=== PATIENT | female | born 1955 | race Caucasian/White ===

== ENCOUNTER 2018-03-16 12:23 | Inpatient (IN) | payer BC ==
[2018-03-16 13:14] LABS: Absolute Lymphocytes (CBC) 1.5 K/uL (0.7-4.9); Absolute Monocytes 0.5 K/uL (0.1-1.3); Absolute Neutrophil 7.3 K/uL (1.8-8.0); Basophils % 0.3 % (0-1.3); Eosinophils % 0.1 % (0-4.4); Hematocrit 39.7 % (36.0-45.0); Lymphocytes % 16.5 % (15.3-44.8); MCH 29.1 pg (27.0-35.0); MPV 7.4 fL (7.6-11.3); Monocytes % 5.7 % (3.3-12.3); RBC Red Blood Cell Count 4.56 M/uL (3.86-4.86)
[2018-03-16] MEDS ORDERED: IBUPROFEN 400 MG TAB ONE (13:21)
[2018-03-16] MEDS ORDERED: IBUPROFEN 200 MG TAB PO ONE (13:21)
[2018-03-16 13:33] LABS: ALT/SGPT 45 U/L (12-78); AST/SGOT 20 U/L (15-37); Albumin 4.2 g/dL (3.4-5.0); Alkaline Phosphatase 69 U/L (45-117); BUN Blood Urea Nitrogen 19 mg/dL (7-18); Bicarbonate 24 mmol/L (21-32); Bilirubin Direct 0.2 mg/dL (0-0.2); Bilirubin Total 0.5 mg/dL (0.2-1.0); Creatine Phosphokinase 129 U/L (26-192); Glucose Level 116 mg/dL (74-106); Lipase 88 U/L (73-393); Potassium 4.2 mmol/L (3.5-5.1); Protein, Total 7.5 g/dL (6.4-8.2); Sodium Level 137 mmol/L (136-145); Troponin (Emerg Dept Use Only) < 0.02 ng/mL (0.0-0.045)
--- NOTE | 2018-03-16 13:42 | RAD REPORT ---
EXAM DESCRIPTION: RAD - Chest Pa And Lat (2 Views) - 03/16/2018 1:37 pm CLINICAL HISTORY: Cough and congestion, right-sided chest pain and fever COMPARISON: September 2011 TECHNIQUE: PA and lateral views of the chest were obtained. FINDINGS: The lungs are underinflated. There is a large area of consolidation in the right upper lob e with no cavitation component. Lung arguelles are otherwise clear. Patient has a mild chronic interstit ial pattern seen. Trachea is midline. Heart size is normal and central vasculature is within normal limits. No pleural effusion or pneumothorax seen. No acute bony finding noted. No aortic abnormal ity. IMPRESSION: Moderately large right upper lobe pneumonia. No cavitation or other complicating factor.
[2018-03-16] MEDS ORDERED: NA CHLORIDE 0.9% 2,000 ML ONE (14:17)
[2018-03-16] MEDS ORDERED: CEFTRIAXONE/SWI 1gm 1 GM/10 ML SYR ONE (14:17)
[2018-03-16] MEDS ORDERED: AZITHROMYCIN 500 MG/250 ML BAG ONE (14:17)
[2018-03-16] MEDS ORDERED: IPRATROPIUM BROM 0.5MG/2.5ML ONE (14:27)
[2018-03-16] MEDS ORDERED: ALBUTEROL 2.5 MG/3 ML NEB SOL ONE (14:27)
--- NOTE | 2018-03-16 15:49 | ER ---
Nurse's Notes [facility] Name: Denisha Thao Age: 62 yrs Sex: Female : 1955 Arrival Date: 03/16/2018 Time: 12:26 Bed 16 Private MD: Caleb Holbrook V Diagnosis: Pneumonia, unspecified organism Presentation: 03/16 12:33 Presenting complaint: Patient states: around 1030 last night I got the chills and began la1 having pain in the right side of my chest and shoulder. Pt reports cough for 2 weeks. Transition of care: patient was not received from another setting of care. Onset of symptoms was March 16, 2018. Risk Assessment: Do you want to hurt yourself or someone else? Patient reports no desire to harm self or others. Initial Sepsis Screen: Does the patient meet any 2 criteria? No. Patient's initial sepsis screen is negative. Does the patient have a suspected source of infection? No. Patient's initial sepsis screen is negative. Care prior to arrival: None. 12:33 Method Of Arrival: Wheelchair la1 12:33 Acuity: EWELINA 3 la1 Historical: - Allergies: 12:34 No Known Allergies; la1 - PMHx: 12:34 Hypertension; High Cholesterol; neuropathy; la1 - Immunization history:: Adult Immunizations up to date. - Social history:: Smoking status: Patient uses tobacco products, smokes one pack cigarettes per day. - Ebola Screening: : No symptoms or risks identified at this time. Screenin:22 Abuse screen: Denies threats or abuse. Denies injuries from another. Nutritional aj screening: No deficits noted. Tuberculosis screening: No symptoms or risk factors identified. Fall Risk None identified. Assessment: 13:17 General: Appears in no apparent distress. comfortable, Behavior is calm, cooperative, aj appropriate for age. Pain: Complains of pain in chest, anterior aspect of right shoulder and posterior aspect of right shoulder. Cardiovascular: Reports chest pain, Capillary refill < 3 seconds in bilateral Patient's skin is warm and dry. Respiratory: Reports cough that is pain with respiration Airway is patent Respiratory effort is even, unlabored, Respiratory pattern is regular, symmetrical. Derm: Skin is intact, is healthy with good turgor, Skin is pink, warm \T\ dry. normal. 14:36 Reassessment: Patient appears in no apparent distress at this time. No changes from aj previously documented assessment. Patient and/or family updated on plan of care and expected duration. Pain level reassessed. Patient is alert, oriented x 3, equal unlabored respirations, skin warm/dry/pink. Patient states feeling better. 16:26 Reassessment: Patient appears in no apparent distress at this time. No changes from aj previously documented assessment. Patient and/or family updated on plan of care and expected duration. Pain level reassessed. Patient is alert, oriented x 3, equal unlabored respirations, skin warm/dry/pink. Patient denies pain at this time. Patient states feeling better. Patient states symptoms have improved. Vital Signs: 12:34 BP 100 / 59; Pulse 94; Resp 20; Temp 99.1; Pulse Ox 93% on R/A; Weight 83.91 kg; la1 14:36 BP 111 / 75; Pulse 90; Resp 21; Temp 98.7; Pulse Ox 100% on R/A; aj ED Course: 12:26 Patient arrived in ED. rg4 12:26 Caleb Holbrook MD is Private Physician. rg4 12:34 Triage completed. la1 12:34 Arm band placed on right wrist. la1 12:35 Pattie Ross FNP-C is [facility]. kb 12:35 Fransisco Coronel MD is Attending Physician. kb 12:36 Rivka Byrd, VALENTINE is Primary Nurse. aj 13:15 Inserted saline lock: 22 gauge in right antecubital area, using aseptic technique. la1 Blood collected. 13:22 Patient has correct armband on for positive identification. hub bander on. Pulse aj ox on. NIBP on. 13:22 EKG done, by ED staff, reviewed by Fransisco Coronel MD. mh5 13:22 Patient maintains SpO2 saturation greater than 95% on room air. aj 13:36 X-ray completed. Portable x-ray completed in exam room. Patient tolerated procedure la2 well. 13:37 Chest Pa And Lat (2 Views) XRAY In Process Unspecified. EDMS 15:48 Caleb Holbrook MD is Hospitalizing Provider. kb 16:26 No provider procedures requiring assistance completed. Patient admitted, IV remains in aj place. intact. Administered Medications: 13:15 Drug: Ibuprofen 600 mg Route: PO; aj 14:47 Follow up: Response: Pain is decreased aj 14:18 Drug: NS 0.9% (30 ml/kg) 30 ml/kg Route: IV; Rate: bolus; Site: right antecubital; aj 16:24 Follow up: IV Status: Completed infusion aj 16:24 Follow up: Response: No adverse reaction; IV Intake: 2500ml aj 14:19 Drug: Rocephin - (cefTRIAXone) 1 grams Route: IVPB; Infused Over: 30 mins; Site: right aj antecubital; 16:25 Follow up: Response: No adverse reaction; IV Status: Completed infusion; IV Intake: 10mlaj 14:19 Drug: Zithromax 500 mg Route: IVPB; Infused Over: 1 hrs; Site: right antecubital; aj 16:25 Follow up: Response: No adverse reaction; IV Status: Completed infusion; IV Intake: aj 250ml 14:22 Drug: DuoNeb (3:1) (2.5 mg - 0.5 mg) 3 ml Route: Nebulizer; aj 14:46 Follow up: Response: No adverse reaction; Wheezing diminished aj Intake: 16:24 IV: 2500ml; Total: 2500ml. aj 16:25 IV: 250ml; Total: 2750ml. aj 16:25 IV: 10ml; Total: 2760ml. aj Outcome: 15:49 Decision to Hospitalize by Provider. kb 16:26 Admitted to Med/surg accompanied by tech, via wheelchair, room 225, Report called to radha Solares 16:26 Condition: good 16:26 Instructed on the need for admit. 16:27 Patient left the ED. aj Signatures: Dispatcher [employer] Pattie March, WALESKA PERRY-Rivka Herron, RN RN Lito Wu RN RN Erin Martinez Maria Johanny Smith
--- NOTE | 2018-03-16 15:49 | EDPHYS ---
Physician Documentation [facility] Name: eDnisha Thao Age: 62 yrs Sex: Female : 1955 Arrival Date: 03/16/2018 Time: 12:26 Bed 16 Private MD: Caleb Holbrook V ED Physician Fransisco Coronel HPI: 03/16 14:36 This 62 yrs old Female presents to ER via Wheelchair with complaints of Chest kb Pain, Shoulder Pain, Leg Pain, Breathing Difficulty. 14:36 The patient or guardian reports cough, that is intermittent, described as moderate, kb with no sputum, flu symptoms, low-grade fever. Onset: The symptoms/episode began/occurred 3 day(s) ago. Severity of symptoms: At their worst the symptoms were moderate, in the emergency department the symptoms are unchanged. Modifying factors: The symptoms are alleviated by nothing, the symptoms are aggravated by nothing. Associated signs and symptoms: Pertinent positives: chest pain, fever. The patient has not experienced similar symptoms in the past. The patient has not recently seen a physician. Pt reports cough for 3 days, right-sided chest pain and chills started last night. . Historical: - Allergies: 12:34 No Known Allergies; la1 - PMHx: 12:34 Hypertension; High Cholesterol; neuropathy; la1 - Immunization history:: Adult Immunizations up to date. - Social history:: Smoking status: Patient uses tobacco products, smokes one pack cigarettes per day. - Ebola Screening: : No symptoms or risks identified at this time. ROS: 14:30 ENT: Negative for injury, pain, and discharge, Neck: Negative for injury, pain, and kb swelling, Abdomen/GI: Negative for abdominal pain, nausea, vomiting, diarrhea, and constipation, Back: Negative for injury and pain, : Negative for injury, bleeding, discharge, and swelling, MS/Extremity: Negative for injury and deformity, Skin: Negative for injury, rash, and discoloration, Neuro: Negative for headache, weakness, numbness, tingling, and seizure. 14:30 Constitutional: Positive for chills, fever, Negative for body aches, fatigue, malaise, poor PO intake, weight loss. 14:30 Cardiovascular: Positive for chest pain, of the anterior aspect of right upper chest, Negative for edema, orthopnea, palpitations, paroxysmal nocturnal dyspnea. 14:30 Respiratory: Positive for cough, Negative for dyspnea on exertion, hemoptysis, orthopnea, pleurisy, shortness of breath, sputum production, wheezing. Exam: 14:30 Constitutional: This is a well developed, well nourished patient who is awake, alert, kb and in no acute distress. Head/Face: Normocephalic, atraumatic. Chest/axilla: Normal chest wall appearance and motion. Nontender with no deformity. No lesions are appreciated. Cardiovascular: Regular rate and rhythm with a normal S1 and S2. No gallops, murmurs, or rubs. Normal PMI, no JVD. No pulse deficits. Abdomen/GI: Soft, non-tender, with normal bowel sounds. No distension or tympany. No guarding or rebound. No evidence of tenderness throughout. Skin: Warm, dry with normal turgor. Normal color with no rashes, no lesions, and no evidence of cellulitis. MS/ Extremity: Pulses equal, no cyanosis. Neurovascular intact. Full, normal range of motion. Neuro: Awake and alert, GCS 15, oriented to person, place, time, and situation. Cranial nerves II-XII grossly intact. Motor strength 5/5 in all extremities. Sensory grossly intact. Cerebellar exam normal. Normal gait. 14:30 Respiratory: the patient does not display signs of respiratory distress, Respirations: normal, Breath sounds: rhonchi, that are mild, are heard in the right upper lobe. Vital Signs: 12:34 BP 100 / 59; Pulse 94; Resp 20; Temp 99.1; Pulse Ox 93% on R/A; Weight 83.91 kg; la1 14:36 BP 111 / 75; Pulse 90; Resp 21; Temp 98.7; Pulse Ox 100% on R/A; aj MDM: 12:35 Patient medically screened. kb 14:29 Data reviewed: vital signs, nurses notes. Data interpreted: Pulse oximetry: on room air kb is 93 %. Interpretation: acceptable. Counseling: I had a detailed discussion with the patient and/or guardian regarding: the historical points, exam findings, and any diagnostic results supporting the discharge/admit diagnosis, lab results, radiology results, the need for further work-up and treatment in the hospital. Physician consultation: Caleb Holbrook MD was called at 14:29, message left. 15:05 Physician consultation: Caleb Holbrook MD was called at 15:05. kb 15:31 Physician consultation: Caleb Holbrook MD was called at 15:31. kb 15:48 Physician consultation: Caleb Holbrook MD was contacted at 15:48, regarding admission, to the telemetry unit. patient's condition, and will see patient in inpatient room. 03/16 12:42 Order name: Lipase; Complete Time: 13:54 kb 03/16 12:42 Order name: Basic Metabolic Panel; Complete Time: 13:54 kb 03/16 12:42 Order name: Blood Culture Adult (2) kb 03/16 12:42 Order name: CBC with Diff; Complete Time: 13:15 kb 03/16 12:42 Order name: Ckmb; Complete Time: 13:54 kb 03/16 12:42 Order name: CPK; Complete Time: 13:54 kb 03/16 12:42 Order name: Lactate; Complete Time: 13:54 kb 03/16 12:42 Order name: LFT's; Complete Time: 13:54 kb 03/16 12:42 Order name: Procalcitonin; Complete Time: 13:54 kb 03/16 12:42 Order name: Troponin (emerg Dept Use Only); Complete Time: 13:54 kb 03/16 12:42 Order name: Urine Microscopic Only kb 03/16 12:42 Order name: Chest Pa And Lat (2 Views) XRAY; Complete Time: 13:54 kb 03/16 16:11 Order name: Urine Dipstick--Ancillary (enter results) ag 03/16 12:42 Order name: Cardiac monitoring; Complete Time: 13:16 kb 03/16 12:42 Order name: EKG - Nurse/Tech; Complete Time: 13:16 kb 03/16 12:42 Order name: IV Saline Lock - Large Bore; Complete Time: 13:15 kb 03/16 12:42 Order name: Labs collected and sent; Complete Time: 13:15 kb 03/16 12:42 Order name: O2 Per Protocol; Complete Time: 13:16 kb 03/16 12:42 Order name: O2 Sat Monitoring; Complete Time: 13:16 kb 03/16 12:42 Order name: Urine Dipstick-Ancillary (obtain specimen); Complete Time: 16:26 kb 03/16 14:27 Order name: Vital Signs; Complete Time: 14:41 kb Administered Medications: 13:15 Drug: Ibuprofen 600 mg Route: PO; aj 14:47 Follow up: Response: Pain is decreased aj 14:18 Drug: NS 0.9% (30 ml/kg) 30 ml/kg Route: IV; Rate: bolus; Site: right antecubital; aj 16:24 Follow up: IV Status: Completed infusion aj 16:24 Follow up: Response: No adverse reaction; IV Intake: 2500ml aj 14:19 Drug: Rocephin - (cefTRIAXone) 1 grams Route: IVPB; Infused Over: 30 mins; Site: right aj antecubital; 16:25 Follow up: Response: No adverse reaction; IV Status: Completed infusion; IV Intake: 10mlaj 14:19 Drug: Zithromax 500 mg Route: IVPB; Infused Over: 1 hrs; Site: right antecubital; aj 16:25 Follow up: Response: No adverse reaction; IV Status: Completed infusion; IV Intake: aj 250ml 14:22 Drug: DuoNeb (3:1) (2.5 mg - 0.5 mg) 3 ml Route: Nebulizer; aj 14:46 Follow up: Response: No adverse reaction; Wheezing diminished aj Disposition: 03/16/18 15:49 Hospitalization ordered by Caleb Holbrook for Inpatient Admission. Preliminary diagnosis is Pneumonia, unspecified organism. - Bed requested for Telemetry/MedSurg (Inpatient). - Status is Inpatient Admission. aj - Condition is Stable. - Problem is new. - Symptoms are unchanged. UTI on Admission? No Addendum: 03/18/2018 07:14 Co-signature as Attending Physician, Fransisco Coronel MD I agree with the assessment and c maher plan of care. Signatures: Dispatcher [employer] [facility] Pattie Ross, HAND BOOKED FOLDER AND STITCHER-C HAND BOOKED FOLDER AND STITCHER-Humera Rose, RN Rivka Quick RN Fransisco Nova MD MD cha Attema, Lee RN RN la1 Corrections: (The following items were deleted from the chart) 03/16 13:00 12:43 Chest Pa And Lat (2 Views)+[id number].[email or web address] ordered. EDOK EDOK 14:36 14:30 Respiratory: the patient does not display signs of respiratory distress, kb Respirations: normal, Breath sounds: rhonchi, that are mild, are heard in the right upper lobe, wheezing: expiratory that is mild, is heard diffusely, kb 16:06 15:49 Hospitalization Ordered by Caleb Holbrook MD for Inpatient Admission. Preliminary dw diagnosis is Pneumonia, unspecified organism. Bed requested for Telemetry/MedSurg (Inpatient). Status is Inpatient Admission. Condition is Stable. Problem is new. Symptoms are unchanged. UTI on Admission? No. kb 16:27 16:06 03/16/2018 15:49 Hospitalization Ordered by Caleb Holbrook MD for Inpatient aj Admission. Preliminary diagnosis is Pneumonia, unspecified organism. Bed requested for Telemetry/MedSurg (Inpatient). Status is Inpatient Admission. Condition is Stable. Problem is new. Symptoms are unchanged. UTI on Admission? No. dw
[2018-03-16] MEDS ORDERED: IPRATROPIUM BROM 0.5MG/2.5ML NEB PRN (16:41)
[2018-03-16] MEDS ORDERED: ALBUTEROL 2.5 MG/3 ML NEB SOL NEB PRN (16:41)
[2018-03-16 17:06] LABS: Urine Bacteria 20-50 /HPF (<20); Urine Culture Reflex Order REFLEXED; Urine RBC <5 /HPF (NONE SEEN)
[2018-03-16 17:40] VITALS: BMI 39.3
[2018-03-16] MEDS ORDERED: PIPER/TAZO/NS 3.375gm 3.375 GM/100 ML BAG IVPB SCH (18:00)
[2018-03-16] MEDS ORDERED: INFLUENZA VACCINE (for 3y+) 0.5 ML DOSE IMVAC ONE (18:00)
[2018-03-16] MEDS: NACHLORIDE 0.45% 1,000 ML IV SCH (18:16)
[2018-03-16] MEDS: ACETAMINOPHEN 500 MG TAB PO PRN ×2 (18:26→23:45)
[2018-03-16] MEDS: PIPER/TAZO/NS 3.375gm 3.375 GM/100 ML BAG IVPB SCH (23:33)
--- NOTE | 2018-03-16 23:52 | P.HP ---
Certification for Inpatient Patient admitted to: Inpatient With expected LOS: >2 Midnights Practitioner: I am a practitioner with admitting privileges, knowledge of patient current condition, hospital course, and medical plan of care. Services: Services provided to patient in accordance with Admission requirements found in Title 42 Section 412.3 of the Code of Federal Regulations Patient History Date of Service: 03/17/18 Reason for admission: DYSPNEA History of Present Illness: MS. OH IS A SMOKER WHO SUDDENLY GOT SICK WITH DYSPNEA, FEVER AND FATIGUE. SHE CAME TO ER AND IS FOUND TO HAVE RIGHT UPPER LOBE PNEUMONIA. Allergies No Known Allergies Allergy (Verified 03/16/18 16:33) Home Medications: Aspirin [Aspir-Low] 162 mg PO DAILY 03/16/18 Atorvastatin Calcium [Lipitor] 40 mg PO DAILY 03/16/18 Bisoprolol Fumarate [Zebeta*] 5 mg PO DAILY 03/16/18 Cyclobenzaprine [Flexeril*] 10 mg PO TID PRN 03/16/18 Duloxetine HCl 60 mg PO DAILY 03/16/18 Gabapentin 300 mg PO TID 03/16/18 Loratadine 10 mg PO DAILY 03/16/18 Losartan/Hydrochlorothiazide [Losartan-Hctz 100-12.5 mg Tab] 1 each PO DAILY Magnesium Oxide [Magnesium] 500 mg PO BEDTIME 03/16/18 Metformin HCl 500 mg PO BID 03/16/18 Multivitamin [Daily Multivitamin] 1 tab PO DAILY 03/16/18 Oxybutynin Chloride 5 mg PO BID 03/16/18 - Past Medical/Surgical History Has patient received pneumonia vaccine in the past: No Diabetic: No -: Hypertension -: Hyperlipidemia -: Neuropathy -: 3x c sections -: hysterectomy - Family History Mother -: Diabetes, Cancer Notes: colon cancer, lung cancer sisters -: Diabetes - Social History Smoking Status: Current some day smoker Alcohol use: No CD- Drugs: No Caffeine use: Yes Place of Residence: Home Review of Systems 10-point ROS is otherwise unremarkable General: Weakness, Malaise Respiratory: Shortness of Breath Physical Examination - Vital Signs Temperature: 101.3 F Blood Pressure: 107/53 Pulse: 94 Respirations: 20 Pulse Ox (%): 91 - Physical Exam General: Alert, Moderate distress HEENT: Atraumatic, PERRLA, Mucous membr. moist/pink, EOMI, Sclerae nonicteric Neck: Supple, 2+ carotid pulse no bruit, No LAD, Without JVD or thyroid abnormality Respiratory: Diminished Cardiovascular: Regular rate/rhythm, Normal S1 S2 Gastrointestinal: Normal bowel sounds, No tenderness Musculoskeletal: No tenderness Integumentary: No rashes Neurological: Normal gait, Normal speech, Normal strength at 5/5 x4 extr, Normal tone, Normal affect Lymphatics: No axilla or inguinal lymphadenopathy - Studies Laboratory Data (last 24 hrs) 03/16/18 13:00: WBC 9.4, Hgb 13.3, Hct 39.7, Plt Count 230 03/16/18 13:00: Sodium 137, Potassium 4.2, BUN 19 H, Creatinine 0.80, Glucose 116 H, Total Bilirubin 0.5, AST 20, ALT 45, Alkaline Phosphatase 69, Lipase 88 Assessment and Plan - Problems (Diagnosis) (1) Bacterial pneumonia Current Visit: Yes Status: Acute Plan: CHANGE TO IV ZOSYN SHE IS HIGHER RISK THAN REGULAR PNEUMONIA SHE IS SMOKER CULTURES ARE DONE SHE HAS NO SPUTUM. WILL FU DAILY NEBS Q6H PRN. MEDS RENEWED. (2) Diabetes Current Visit: Yes Status: Chronic Plan: CHECK A1C. Qualifiers: Diabetes mellitus type: type 2 (3) HTN (hypertension) Current Visit: Yes Status: Acute Qualifiers: Hypertension type: essential hypertension Qualified Code(s): I10 - Essential (primary) hypertension (4) COPD (chronic obstructive pulmonary disease) Current Visit: Yes Status: Chronic Plan: NEBS FU DAILY NO NEED FOR STEROID AT TIME. - Advance Directives Does patient have a Living Will: No Does patient have a Durable POA for Healthcare: No
[2018-03-16] MEDS ORDERED: CYCLOBENZAPRINE 10 MG TAB PO PRN (23:53)
[2018-03-17] MEDS: ACETAMINOPHEN 500 MG TAB PO PRN ×2 (05:52→17:48)
[2018-03-17] MEDS: PIPER/TAZO/NS 3.375gm 3.375 GM/100 ML BAG IVPB SCH ×3 (05:52→21:02)
[2018-03-17] MEDS: NACHLORIDE 0.45% 1,000 ML IV SCH ×3 (05:52→21:02)
[2018-03-17 06:00] LABS: Absolute Lymphocytes (CBC) 1.7 K/uL (0.7-4.9); Absolute Monocytes 0.8 K/uL (0.1-1.3); Absolute Neutrophil 10.8 K/uL (1.8-8.0); Basophils % 0.2 % (0-1.3); Eosinophils % 0.2 % (0-4.4); Hematocrit 32.4 % (36.0-45.0); Lymphocytes % 12.8 % (15.3-44.8); MCH 29.3 pg (27.0-35.0); MCV 87.2 fL (80-100); MPV 7.3 fL (7.6-11.3); Monocytes % 6.3 % (3.3-12.3); RBC Red Blood Cell Count 3.72 M/uL (3.86-4.86)
[2018-03-17] MEDS ORDERED: CEFTRIAXONE/SWI 1gm 1 GM/10 ML SYR IV SCH (06:00)
[2018-03-17 06:08] LABS: BUN Blood Urea Nitrogen 10 mg/dL (7-18); Bicarbonate 23 mmol/L (21-32); Glucose Level 147 mg/dL (74-106); Potassium 3.9 mmol/L (3.5-5.1); Sodium Level 141 mmol/L (136-145)
[2018-03-17] MEDS: DULOXETINE 30 MG CAP PO SCH (08:54)
[2018-03-17] MEDS: LOSARTAN POTASSIUM 50 MG TABLET PO SCH (08:55)
[2018-03-17] MEDS: LORATADINE 10 MG TAB PO SCH (08:56)
[2018-03-17] MEDS: METFORMIN HCL 500 MG TAB PO SCH ×2 (08:56→21:00)
[2018-03-17] MEDS: GABAPENTIN 300 MG CAP PO SCH ×3 (08:57→21:00)
[2018-03-17] MEDS: ASPIRIN EC 81 MG TAB PO SCH (08:58)
[2018-03-17] MEDS ORDERED: ATORVASTATIN 40 MG TAB PO SCH ×2 (09:00→21:00)
[2018-03-17] MEDS ORDERED: AZITHROMYCIN IV 250 MG in NA CHLORIDE 0.9% 250 ML IVPB SCH (09:00)
[2018-03-17] MEDS ORDERED: hydroCHLOROthiazide 12.5 MG CAP PO SCH (09:00)
[2018-03-17] MEDS: OXYBUTYNIN CHLORIDE 5 MG TAB PO SCH ×2 (09:00→21:01)
[2018-03-17] MEDS: MULTIVITAMIN TAB PO SCH (09:00)
[2018-03-17] MEDS: BISOPROLOL 5 MG TABLET PO SCH (10:48)
--- NOTE | 2018-03-17 10:49 | P.PN ---
Subjective Date of Service: 03/17/18 Chief Complaint: LOT BETTER TODAY. Subjective: Improving SHE IS NOT MUCH SHORT OF BREATH FEELS LOT BETTER. Review of Systems 10-point ROS is otherwise unremarkable General: Weakness Physical Examination - Vital Signs Temperature: 98.2 F Blood Pressure: 129/64 Pulse: 85 Respirations: 18 Pulse Ox (%): 93 - Physical Exam General: Alert, In no apparent distress HEENT: Atraumatic, PERRLA, EOMI Neck: Supple, JVD not distended Respiratory: Clear to auscultation bilaterally, Normal air movement Cardiovascular: Regular rate/rhythm, Normal S1 S2 Gastrointestinal: Normal bowel sounds, No tenderness Musculoskeletal: No tenderness Integumentary: No rashes Neurological: Normal speech, Normal tone, Normal affect Lymphatics: No axilla or inguinal lymphadenopathy - Studies Laboratory Data (last 24 hrs) 03/16/18 13:00: WBC 9.4, Hgb 13.3, Hct 39.7, Plt Count 230 03/16/18 13:00: Sodium 137, Potassium 4.2, BUN 19 H, Creatinine 0.80, Glucose 116 H, Total Bilirubin 0.5, AST 20, ALT 45, Alkaline Phosphatase 69, Lipase 88 Medications List Reviewed: Yes Assessment And Plan - Current Problems (Diagnosis) (1) Bacterial pneumonia Current Visit: Yes Status: Acute Plan: CHANGE TO IV ZOSYN SHE IS HIGHER RISK THAN REGULAR PNEUMONIA SHE IS SMOKER CULTURES ARE DONE SHE HAS NO SPUTUM. WILL FU DAILY NEBS Q6H PRN. MEDS RENEWED. IV ZOSYN WORKED GREAT. SPUTUM CULTURE -NO SPUTUM YET. (2) Diabetes Current Visit: Yes Status: Chronic Plan: CHECK A1C. Qualifiers: Diabetes mellitus type: type 2 (3) HTN (hypertension) Current Visit: Yes Status: Acute Qualifiers: Hypertension type: essential hypertension Qualified Code(s): I10 - Essential (primary) hypertension (4) COPD (chronic obstructive pulmonary disease) Current Visit: Yes Status: Chronic Plan: NEBS FU DAILY NO NEED FOR STEROID AT TIME.
--- NOTE | 2018-03-17 13:36 | RAD REPORT ---
EXAM DESCRIPTION: CT - Chest For Pe Angio - 03/17/2018 1:14 pm CLINICAL HISTORY: Chest pain. PAIN COMPARISON: CT-LOW DOSE CT CHEST SCREENING dated 06/26/2014; Chest Pa And Lat (2 Views) dated 018 TECHNIQUE: CT angiogram of the pulmonary arteries was performed with MIP. All CT scans are performed using dose optimization technique as appropriate and may include automated exposure control or mA/KV adjustment according to patient size. FINDINGS: No evidence of pulmonary thromboembolism. No acute aortic finding demonstrated. Large airspace consolidation is seen in the right upper lobe containing air bronchograms, likely repr esenting pneumonia. Mild adenopathy in the right hilum is seen probably representing reactive adenopa thy. Linear subsegmental atelectasis in both lung bases is also present. No significant pericardial or pleural fluid. No concerning bony finding. Fatty liver. IMPRESSION: No evidence of pulmonary thromboembolism. Large airspace consolidation right upper lobe likely represents pneumonia. Follow-up imaging until co mplete clearance is recommended.
[2018-03-17] MEDS ORDERED: ENOXAPARIN 40 MG/0.4 ML SQ SCH (17:00)
[2018-03-17] MEDS ORDERED: HOME MED 1 EA UNK (Magnesium Oxide [Magnesium] 500 MG) PO SCH (21:00)
[2018-03-17] MEDS ORDERED: MAGNESIUM OXIDE 400 MG TAB PO SCH (21:00)
[2018-03-18] MEDS: PIPER/TAZO/NS 3.375gm 3.375 GM/100 ML BAG IVPB SCH (05:39)
[2018-03-18 07:05] LABS: Absolute Lymphocytes (CBC) 2.5 K/uL (0.7-4.9); Absolute Monocytes 0.7 K/uL (0.1-1.3); Absolute Neutrophil 8.7 K/uL (1.8-8.0); Basophils % 0.3 % (0-1.3); Eosinophils % 1.7 % (0-4.4); Hematocrit 34.7 % (36.0-45.0); Lymphocytes % 20.7 % (15.3-44.8); MCH 28.7 pg (27.0-35.0); MCV 86.3 fL (80-100); MPV 7.2 fL (7.6-11.3); Monocytes % 5.4 % (3.3-12.3); RBC Red Blood Cell Count 4.02 M/uL (3.86-4.86)
[2018-03-18 07:14] LABS: BUN Blood Urea Nitrogen 9 mg/dL (7-18); Bicarbonate 26 mmol/L (21-32); Glucose Level 112 mg/dL (74-106); Potassium 3.4 mmol/L (3.5-5.1); Sodium Level 143 mmol/L (136-145)
[2018-03-18] MEDS: METFORMIN HCL 500 MG TAB PO SCH (09:00)
[2018-03-18] MEDS: BISOPROLOL 5 MG TABLET PO SCH (09:33)
[2018-03-18] MEDS: GABAPENTIN 300 MG CAP PO SCH (09:33)
[2018-03-18] MEDS: LORATADINE 10 MG TAB PO SCH (09:33)
[2018-03-18] MEDS: OXYBUTYNIN CHLORIDE 5 MG TAB PO SCH (09:33)
[2018-03-18] MEDS: DULOXETINE 30 MG CAP PO SCH (09:33)
[2018-03-18] MEDS: MULTIVITAMIN TAB PO SCH (09:34)
[2018-03-18] MEDS: LOSARTAN POTASSIUM 50 MG TABLET PO SCH (09:34)
[2018-03-18] MEDS: ASPIRIN EC 81 MG TAB PO SCH (09:34)
[2018-03-18] MEDS ORDERED: INFLUENZA VACCINE (for 3y+) 0.5 ML DOSE IMVAC ONE (10:00)
--- NOTE | 2018-03-18 10:13 | EKG ---
Test Date: 2018-03-16 Test Time: 13:14:57 [employer] Counselor: MARIE MEASUREMENT RESULTS: Intervals: Rate: 101 DC: 132 QRSD: 82 QT: 330 QTc: 427 [place]: P: 55 DC: 132 QRS: 6 T: 39 INTERPRETIVE STATEMENTS: Sinus tachycardia Possible Left atrial enlargement Nonspecific ST abnormality Abnormal ECG Compared to ECG 12/12/2007 18:33:36 ST (T wave) deviation now present Sinus rhythm no longer present Electronically Signed On 03-18-18 10:13:03 CDT by Shan Barron
--- NOTE | 2018-03-18 21:42 | P.DS ---
Admission Date: 03/16/18 Discharge Date: 03/18/18 Disposition: ROUTINE DISCHARGE Discharge Condition: FAIR Reason for Admission: LOT BETTER TODAY. - Problems (1) Bacterial pneumonia Onset Date: 03/18/18 Status: Acute (2) Diabetes Onset Date: 03/18/18 Status: Chronic Qualifiers: Diabetes mellitus type: type 2 (3) HTN (hypertension) Onset Date: 03/18/18 Status: Resolved Qualifiers: Hypertension type: essential hypertension Qualified Code(s): I10 - Essential (primary) hypertension (4) COPD (chronic obstructive pulmonary disease) Onset Date: 03/18/18 Status: Chronic Brief History of Present Illness: MS. OH IS A SMOKER WHO SUDDENLY GOT SICK WITH DYSPNEA, FEVER AND FATIGUE. SHE CAME TO ER AND IS FOUND TO HAVE RIGHT UPPER LOBE PNEUMONIA. PIERCE IS FEELING GREAT AND HAS NO SYMPTOMS SHE WANTS TO GO HOME. SHE WILL TAKE LEVAQUIN DAILY FOR 12 DAYS. FU IN OFFICE IN 10 DAYS. WILL FU CXR. Vital Signs/Physical Exam: Temp Pulse Resp BP Pulse Ox 97 F 80 20 110/59 L 96 03/18/18 08:00 03/18/18 08:00 03/18/18 08:00 03/18/18 08:00 03/18/18 08:00 Laboratory Data at Discharge: WBC 12.1 K/uL (4.3-10.9) H 03/18/18 06:53 Hgb 11.5 g/dL (12.0-15.0) L 03/18/18 06:53 Hct 34.7 % (36.0-45.0) L 03/18/18 06:53 Plt Count 204 K/uL (152-406) 03/18/18 06:53 Sodium 143 mmol/L (136-145) 03/18/18 06:53 Potassium 3.4 mmol/L (3.5-5.1) L 03/18/18 06:53 BUN 9 mg/dL (7-18) 03/18/18 06:53 Creatinine 0.50 mg/dL (0.55-1.3) L 03/18/18 06:53 Glucose 112 mg/dL (74-106) H 03/18/18 06:53 Total Bilirubin 0.5 mg/dL (0.2-1.0) 03/16/18 13:00 AST 20 U/L (15-37) 03/16/18 13:00 ALT 45 U/L (12-78) 03/16/18 13:00 Alkaline Phosphatase 69 U/L (45-117) 03/16/18 13:00 Troponin I < 0.02 ng/mL (0.0-0.045) 03/16/18 20:42 Triglycerides 162 mg/dL (<150) H 03/17/18 05:28 Cholesterol 122 mg/dL (<200) 03/17/18 05:28 HDL Cholesterol 47 mg/dL (40-60) 03/17/18 05:28 Cholesterol/HDL Ratio 2.60 03/17/18 05:28 Lipase 88 U/L (73-393) 03/16/18 13:00 Home Medications: Aspirin [Aspir-Low] 162 mg PO DAILY 03/16/18 Atorvastatin Calcium [Lipitor] 40 mg PO DAILY 03/16/18 Bisoprolol Fumarate [Zebeta*] 5 mg PO DAILY 03/16/18 Cyclobenzaprine [Flexeril*] 10 mg PO TID PRN 03/16/18 Duloxetine HCl 60 mg PO DAILY 03/16/18 Gabapentin 300 mg PO TID 03/16/18 Loratadine 10 mg PO DAILY 03/16/18 Losartan/Hydrochlorothiazide [Losartan-Hctz 100-12.5 mg Tab] 1 each PO DAILY Magnesium Oxide [Magnesium] 500 mg PO BEDTIME 03/16/18 Metformin HCl 500 mg PO BID 03/16/18 Multivitamin [Daily Multivitamin] 1 tab PO DAILY 03/16/18 Oxybutynin Chloride 5 mg PO BID 03/16/18 levoFLOXacin [Levaquin*] 750 mg PO DAILY #12 tab 03/18/18 New Medications: levoFLOXacin [Levaquin*] 750 mg PO DAILY #12 tab Followup: Caleb Holbrook MD [Primary Care Provider] -
[2018-03-19 14:05] VITALS: O2SAT 96
[2018-03-19 14:09] VITALS: BP 110/59; TEMP 97
== END 2018-03-18 10:00 | disposition home or self-care (01) | DRG 194 ==
LOC: ER 12:23 → ERHOLD 14:51 → 2ND 16:21
PROVIDERS: ADMIT Internal Medicine; ATTEND Internal Medicine
DX: J15.9 Unspecified bacterial pneumonia (principal); J44.0 Chronic obstructive pulmonary disease with (acute) lower respiratory infection; E11.40 Type 2 diabetes mellitus with diabetic neuropathy, unspecified; I10 Essential (primary) hypertension; F17.210 Nicotine dependence, cigarettes, uncomplicated; E78.5 Hyperlipidemia, unspecified
CPT/HCPCS: 36415; 71046; 71275; 80048; 80061; 80076; 81015; 82550; 82553; 83036; 83605; 83690; 84145; 84484; 85025; 87040; 87070; 87086; 87088; 87205; 87804; 93005; 94640; 94760; 96365; 96367; 99285; J0456; J0696; J1650; J2543; J7030; Q2035; Q9967

== ENCOUNTER 2021-06-20 12:50 | Inpatient (IN) | payer OTHER ==
--- OUTSIDE RECORDS SUMMARY | 2021-06-20 12:54 | XMS REPORT | Continuity of Care Document ---
:1955 Author Organization [facility] t Address [address] [place] [address] [address] [place] [address] Care Team Providers Name Role Phone VANCE Primary Care Physician Unavailable Abhishek THOMASON Attending Clinician ABHISHEK Attending Clinician Unavailable Doctor Unassigned, Name Attending Clinician Unavailable ABHISHEK Admitting Clinician Unavailable Payers Payer Name Policy Type Policy Number Effective Date Expiration Date S ource Problems This patient has no known problems. Allergies, Adverse Reactions, Alerts Allergy Allergy Status Severity Reaction(s) Onset Inactive Treating Comm ents Source Name Type Date Date Clinician NO KNOWN Drug Active Univers ALLERGIE Class ity of S [facility] Social History Social Habit Start Date Stop Date Quantity Comments Source Exposure to Not sure [facility] SARS-CoV-2 (event) Medica l Branch Sex Assigned [birth year] [facility] 00:00:00 00:00:00 [facility] Smoking Status Start Date Stop Date Source Unknown if ever smoked [facility] Medications Ordered Filled Start Stop Current Ordering Indication Dosage Frequency Signature Comments Components Source Medication Medication Date Date Medication? Clinician (SIG) Name Name NaCl 0.9% 2020-06- No 1000mL at 999 Uni vers (NS) bolus - 12-26 mL/hr, ity of infusion 06:15: 09:00 1,000 mL, Maciel as 1,000 mL 00 :00 IV Medical Infusion, [place] ONCE, 1 dose, On 05/29/21 at 0015, STAT ibuprofen 2020-06- No 600mg 600 mg, Uni vers (IBU) 2- 12-26 Oral, ity of tablet 600 04:00: 04:01 ONCE, 1 Maciel as mg 00 :00 dose, On Medical Sat Branch 05/28/21 at 2200, INNA benzonatate 2020-06 Yes [id number] 100mg Take 1 Univers 100 mg 2-26 capsule by ity of capsule 00:00: mouth 3 [place] 00 (three) Medical times Branch daily as needed for Cough. ondansetron 2020-06 Yes [id number] 4mg Take 1 Univers 4 mg 2-26 tablet by ity of disintegrat 00:00: mouth [place] ing tablet 00 every 4 Medica l (four) Branch hours as needed for Nausea and Vomiting (N/V). loratadine 2020-06 Yes [id number] 10mg Take 1 Univers 10 mg 2-26 tablet by ity of tablet 00:00: mouth [place] 00 daily. [facility] Branch Immunizations Ordered Filled Immunization Date Status Comments [facility] Immunization Name Name SARS-COV-2 COVID-19 2020-08-08 Completed Unive rsity of MODERNA VACCINE 00:00:00 [facility] SARS-COV-2 COVID-19 2020-08-08 Completed Unive rsity of MODERNA VACCINE 00:00:00 [facility] SARS-COV-2 COVID-19 2020-07-11 Completed Unive rsity of MODERNA VACCINE 00:00:00 [facility] SARS-COV-2 COVID-19 2020-07-11 Completed Unive rsity of MODERNA VACCINE 00:00:00 [facility] Vital Signs Vital Name Observation Time Observation Value Comments Source Systolic blood 2021-05-29 09:00:00 160 mm[Hg] Univer sity of pressure [facility] Diastolic blood 2021-05-29 09:00:00 82 mm[Hg] Unive rsity of pressure [facility] Heart rate 2021-05-29 09:00:00 83 /min [facility] Body temperature 2021-05-29 09:00:00 37.11 [facility] 2021-05-29 09:00:00 24 /min [facility] Oxygen saturation in 2021-05-29 09:00:00 93 /min [facility] Arterial blood by [facility] Pulse oximetry Branch Body height 2021-05-29 03:56:00 149.9 cm [facility] Body weight 2021-05-29 03:56:00 81.647 kg [facility] BMI 2021-05-29 03:56:00 36.36 kg/m2 [facility] Procedures Procedure Date / Time Performing Clinician Source Performed RAPID INFLUENZA A/B 2021-05-29 08:00:00 Boom García [facility] LACTIC ACID WHOLE BLOOD 2021-05-29 07:58:00 Boom García [facility] CREATINE KINASE 2021-05-29 07:57:00 Boom García [facility] TROPONIN I 2021-05-29 07:57:00 Boom García [facility] COMP. METABOLIC PANEL 2021-05-29 07:57:00 Boom García [facility] ([id number]) [facility] CBC WITH DIFF 2021-05-29 07:57:00 Boom García [facility] PROTHROMBIN TIME / INR 2021-05-29 07:57:00 Boom García [facility] ACTIVATED PARTIAL 2021-05-29 07:57:00 Boom García [facility] THRMPLAS [facility] N-TERMINAL PRO-BNP 2021-05-29 07:57:00 Boom García [facility] y [facility] COVID-19 (ID NOW RAPID 2021-05-29 07:56:00 Boom García [facility] TESTING) [facility] URINALYSIS 2021-05-29 06:08:00 Boom García [facility] CT HEAD WO CONTRAST 2021-05-29 05:44:51 Boom García [facility] NOTICE OF PRIVACY 2021-05-29 03:31:04 Doctor Unassigned, No [facility] PRACTICES Name Medical Branch CONSENT/REFUSAL FOR 2021-05-29 03:30:44 [facility]igned, [facility] Name Medical [place] Encounters Start End Encounter Admission Attending Care Care Encounter Source Date/Time Date/Time Type Type Clinicians Facility Department ID 2021-05-28 2021-05-29 Emergency Abhishek [facility] [id number] Univers 21:57:00 03:58:00 Boom GUAJARDO [id number] i [facility] [id number] [facility] [id number] [facility] 084 Branch 2021-05-28 2021-05-29 Emergency X ABHISHEK [facility] ERT [id number] Univers 21:57:00 03:58:00 BOOM ity of [facility] 2021-05-28 2021-05-28 Orders Doctor LEILA [id number] Univers 00:00:00 00:00:00 Only Unassigned, ANEL [id number] ity of [facility] [id number] [facility] [id number] [facility] 009 Branch Results Test Description Test Time Test Comments Results Result Comments Source TROPONIN I 2021-05-29 09:24:19 Test Item Value Reference Range Interpretation Comme nts TROPONIN I (test code = 0.005 ng/mL See_Comment [Au tomated message] The [id number]) system which ge nerated this result tra nsmitted reference range : <=0.034. The reference r charlie was not used to int erpret this result as normal/abnormal . LULU (test code = LULU) Reference (Normal) Range (defined by the 99th percentile reference limit): <= 0.034 ng/mL Note: Cardiac troponin begins to rise 3-4 hours after the onset of ischemia. Repeat in 4-6 hours if the sample was drawn within 3-4 hours of the onset of the symptom and found normal. Diagnosis of myocardial injury is made with acute changes in cTn concentrations with at least one serial sample above the 99th percentile upper reference limit (URL), taken together with the patient's clinical presentation. Biotin has been reported to cause a negative bias, interpret results relative to patient's use of biotin. Lab Interpretation Normal (test code = 16027-6) [facility] [id number] 09:21:03 Test Item Value Reference Range Interpretation Comments NT-proBNP (test code 127 pg/mL See_Comment H [Autom ated = [id number]) message] The system which generated this result transmitted reference range : <=125. The reference range was not used to interpret this result as normal/abnormal . LULU (test code = LULU) Biotin has been reported to cause a negative bias, interpret results relative to patient's use of biotin. Lab Interpretation Abnormal (test code = 08564-6) [facility]. METABOLIC PANEL ([id number])2021-05-29 09:08:22 Test Item Value Reference Range Interpretation Comments NA (test code = 135 mmol/L 135-145 5879114999) K (test code = 3.7 mmol/L 3.5-5.0 8384169005) CL (test code = 101 mmol/L 98-108 0993858891) CO2 TOTAL (test code = 25 mmol/L 23-31 4647152839) AGAP (test code = 2-16 3886611655) BUN (test code = 14 mg/dL 7-23 8288723584) GLUCOSE (test code = 121 mg/dL 70-110 H 0122845611) CREATININE (test code = 0.69 mg/dL 0.50-1.04 6257395381) TOTAL BILI (test code = 0.5 mg/dL 0.1-1.6 7036716241) CALCIUM (test code = 9.1 mg/dL 8.6-10.6 8164237962) T PROTEIN (test code = 6.8 g/dL 6.3-8.2 5813648851) ALBUMIN (test code = 4.3 g/dL 3.5-5.0 5099127156) ALK PHOS (test code = 97 U/L 34-122 0205819553) ALTv (test code = 90 U/L 5-35 H 1742-6) AST(SGOT) (test code = 110 U/L 13-40 H 7385607112) eGFR (test code = mL/min/1.73m2 9998189568) LULU (test code = LULU) Association of Glomerular Filtration Rate (GFR) and Staging of Kidney Disease* + --+ --+ ------+| GFR (mL/min/1.73 m2) ?| With Kidney Damage ?| ?Without Kidney Damage+ --------+ --------+ +| ?>90 ?| ?Stage one ?| ? Normal ?+ ---+ ---+ -------+| ?60-89 ?| ?Stage two ?| ? Decreased GFR ? + --+ --+ ------+| ?30-59 ?| ?Stage three ?| ? Stage three ? + --+ --+ ------+| ?15-29 ?| ?Stage four ? | ? Stage four ?+ ---+ ---+ -------+| ?<15 (or dialysis) ? ?| ?Stage five ? | ? Stage five ?+ ---+ ---+ -------+ *Each stage assumes the associated GFR level has been in effect for at least three months. ?Stages 1 to 5, with or without kidney disease, indicate chronic kidney disease. Notes: Determination of stages one and two (with eGFR >59mL/min/1.73 m2) requires estimation of kidney damage for at least three months as defined by structural or functional abnormalities of the kidney, manifested by either:Pathological abnormalities or Markers of kidney damage (including abnormalities in the composition of the blood or urine or abnormalities in imaging tests). Lab Interpretation Abnormal (test code = 15101-6) [facility] [id number] 09:07:42 Test Item Value Reference Range Interpretation Comments CK (test code = 6949571142) 111 U/L 33-194 Lab Interpretation (test code = Normal 03312-7) [facility] THRMPLAS [id number] 08:37:21 Test Item Value Reference Range Interpretation Comments APTT Patient (test See_Comment [Automat ed code = 3173-2) message] The system which generated this result transmitted reference range : 23 - 38 Seconds . The reference range was not used to interpr et this result as normal/abnormal . LULU (test code = LULU) The [facility] patient population mean normal value for aPTT is 30 seconds. Lab Interpretation Normal (test code = 55521-3) [facility] / [id number] 08:35:01 Test Item Value Reference Range Interpretation Comments PROTIME PATIENT (test See_Comment [Auto mated message] code = 5964-2) The system wh ich generated this result transmitted ref erence range: 12.0 - 1 4.7 Seconds. The re ference range was not u sed to interpret this result as normal/abnor mal. INR (test code = 6301-6) Nor mal INR <1.1; Warfarin Therap eutic range 2.0 to 3. 0 or 2.5 to 3.5, dep ending upon the indica tions. Lab Interpretation (test Normal code = 09233-8) [facility] WITH [id number] 08:24:39 Test Item Value Reference Range Interpretation Comments WBC (test code = See_Comment L [Automated 6690-2) message] The sy stem which generated this result transmitted reference range : 4.30 - 11.10 10*3/?L. The reference range was not used to interpret this result as normal/abnormal . RBC (test code = See_Comment [Automated 789-8) message] The sy stem which generated this result transmitted reference range : 3.93 - 5.25 10*6/?L. The reference range was not used to interpret this result as normal/abnormal . HGB (test code = 10.4 g/dL 11.6-15.0 L 718-7) HCT (test code = 34.1 % 35.7-45.2 L 4544-3) MCV (test code = 80.6 fL 80.6-95.5 787-2) MCH (test code = 24.6 pg 25.9-32.8 L 785-6) MCHC (test code = 30.5 g/dL 31.6-35.1 L 786-4) RDW-SD (test code = 41.8 fL 39.0-49.9 21101-7) RDW-CV (test code = 14.3 % 12.0-15.5 788-0) PLT (test code = See_Comment [Automated 777-3) message] The sy stem which generated this result transmitted reference range : 166 - 358 10*3/ ?L. The reference r charlie was not used to interpret this result as normal/abnormal . MPV (test code = 8.8 fL 9.5-12.9 L 74544-8) NRBC/100 WBC (test See_Comment [Automat ed code = 9846559286) message] The system which generated this result transmitted reference range : 0.0 - 10.0 /100 WBCs. The refer ence range was not u sed to interpret th is result as normal/abnormal . NRBC x10^3 (test code <0.01 See_Comment [Auto mated = 9157709742) message] The s ystem which generated this result transmitted reference range : 10*3/?L. The reference range was not used to interpret this result as normal/abnormal . GRAN MAT (NEUT) % 65.4 % (test code = 770-8) IMM GRAN % (test code 0.50 % = 2787031427) LYMPH % (test code = 20.6 % 736-9) MONO % (test code = 10.2 % 5905-5) EOS % (test code = 2.3 % 713-8) BASO % (test code = 1.0 % 706-2) GRAN MAT x10^3(ANC) 2.57 10*3/uL 1.88-7.09 (test code = 0484729079) IMM GRAN x10^3 (test <0.03 0.00-0.06 code = 3154787622) LYMPH x10^3 (test code 0.81 10*3/uL 1.32-3.29 L = 731-0) MONO x10^3 (test code 0.40 10*3/uL 0.33-0.92 = 742-7) EOS x10^3 (test code = 0.09 10*3/uL 0.03-0.39 711-2) BASO x10^3 (test code 0.04 10*3/uL 0.01-0.07 = 704-7) Lab Interpretation Abnormal (test code = 33881-7) [facility]ney[facility] Whole [id number] 08:05:36 Test Item Value Reference Range Interpretation Comments LACTIC ACID (test code = 1.00 mmol/L 0.50-2.20 6258356829) Lab Interpretation (test code = Normal 25528-4) [facility]"
[2021-06-20] MEDS ORDERED: NA CHLORIDE 0.9% 1,000 ML ONE (15:59)
[2021-06-20 16:15] LABS: Urine Blood 1+ (Negative); Urine Glucose Negative (Negative); Urine Protein 2+ (Negative); Urine pH 5.5 (5.0-7.0)
[2021-06-20 16:23] LABS: Absolute Lymphocytes (CBC) 1.6 K/uL (0.7-4.9); Lymphocytes % 18.1 % (15.3-44.8); MPV 7.1 fL (7.6-11.3); RBC Red Blood Cell Count 4.17 M/uL (3.86-4.86)
[2021-06-20 16:25] LABS: Protime INR 1.17
[2021-06-20 17:00] LABS: Bilirubin Direct 0.3 mg/dL (0-0.2); Bilirubin Total 0.7 mg/dL (0.2-1.0); Magnesium 2.6 mg/dL (1.8-2.4); Protein, Total 7.4 g/dL (6.4-8.2); Troponin High Sensitivity 12.1 pg/mL (<58.9)
[2021-06-20 17:41] LABS: Albumin 3.3 g/dL (3.4-5.0)
[2021-06-20] MEDS ORDERED: CEFTRIAXONE 1000 MG/VIAL ONE (17:51)
[2021-06-20] MEDS ORDERED: AZITHROMYCIN 250 MG TAB ONE (17:51)
[2021-06-20] MEDS ORDERED: METHYLPREDNISOLONE 125 MG INJ ONE (17:51)
[2021-06-20 17:52] LABS: SARS-COV-2 RT PCR POSITIVE (NEGATIVE)
[2021-06-20] MEDS ORDERED: IPRATROPIUM BROM 0.5MG/2.5ML ONE (17:52)
[2021-06-20] MEDS ORDERED: LEVALBUTEROL 1.25 MG/3 ML NEB ONE (17:52)
[2021-06-20] MEDS ORDERED: POTASSIUM 25 MEQ EFFERV TAB ONE (17:52)
--- NOTE | 2021-06-20 18:00 | ER ---
Nurse's Notes [facility] Name: Denisha Thao Age: 65 yrs Sex: Female : 1955 Arrival Date: 06/20/2021 Time: 12:53 Bed 9 Private MD: Diagnosis: Fever, unspecified;Cough;Anemia, unspecified;Hypokalemia;Coronavirus infection, unspecified;UTI/ Urinary tract infection, site not specified;Cardiomegaly;Unspecified combined systolic (congestive) and diastolic (congestive) heart failure Presentation: 06/20 15:09 Chief complaint: Patient states: 'Im weak, dizzy, my legs give out on me, back hurts vg1 and belly hurts' since yesterday. Pt states fell yesterday and today. Denies hitting head or LOC. Pt came in by EMS and has a 20 g to Right AC and was given 1 L of NS. States N/V last night. Coronavirus screen: Vaccine status: Patient reports receiving the 2nd dose of the covid vaccine. Client denies travel out of the [place] in the last 14 days. Client presents with at least one sign or symptom that may indicate coronavirus-19. Standard/surgical mask placed on the client. Ebola Screen: Patient negative for fever greater than or equal to 101.5 degrees Fahrenheit, and additional compatible Ebola Virus Disease symptoms. Initial Sepsis Screen: Does the patient meet any 2 criteria? No. Patient's initial sepsis screen is negative. Does the patient have a suspected source of infection? No. Patient's initial sepsis screen is negative. Risk Assessment: Do you want to hurt yourself or someone else? Patient reports no desire to harm self or others. Onset of symptoms was June 19, 2021. 15:09 Method Of Arrival: EMS: [facility] vg1 15:09 Acuity: EWELINA 3 vg1 Triage Assessment: 15:13 General: Appears in no apparent distress. uncomfortable, Behavior is calm, cooperative. vg1 Pain: Complains of pain in head Pain currently is 5 out of 10 on a pain scale. Historical: - Allergies: 15:13 Iodine; vg1 - Home Meds: 15:13 Metformin Oral [Active]; vg1 - PMHx: 15:13 High Cholesterol; Hypertension; neuropathy; Pre Diabetic; vg1 - PSHx: 15:13 section; vg1 - Immunization history:: Client reports receiving the 2nd dose of the Covid vaccine. - Social history:: Smoking status: Patient denies any tobacco usage or history of. Screenin:18 Abuse screen: Denies threats or abuse. Denies injuries from another. Nutritional ld1 screening: No deficits noted. Tuberculosis screening: No symptoms or risk factors identified. Fall Risk None identified. Assessment: 16:18 General: Appears in no apparent distress. comfortable, Behavior is calm, cooperative, ld1 appropriate for age. Pain: Denies pain. Neuro: Level of Consciousness is awake, alert, obeys commands, Oriented to person, place, time, situation. Cardiovascular: Capillary refill < 3 seconds Patient's skin is warm and dry. Rhythm is regular. Respiratory: Airway is patent Respiratory effort is even, unlabored, Respiratory pattern is regular, symmetrical. GI: Abdomen is round non-distended, obese. : No signs and/or symptoms were reported regarding the genitourinary system. EENT: No signs and/or symptoms were reported regarding the EENT system. Derm: No signs and/or symptoms reported regarding the dermatologic system. Musculoskeletal: No signs and/or symptoms reported regarding the musculoskeletal system. 19:00 Reassessment: Patient appears in no apparent distress at this time. No changes from ll3 previously documented assessment. Patient and/or family updated on plan of care and expected duration. Pain level reassessed. Patient is alert, oriented x 3, equal unlabored respirations, skin warm/dry/pink. 20:00 Reassessment: Patient appears in no apparent distress at this time. No changes from ll3 previously documented assessment. Patient and/or family updated on plan of care and expected duration. Pain level reassessed. Patient is alert, oriented x 3, equal unlabored respirations, skin warm/dry/pink. 21:00 Reassessment: Patient appears in no apparent distress at this time. No changes from ll3 previously documented assessment. Patient and/or family updated on plan of care and expected duration. Pain level reassessed. Patient is alert, oriented x 3, equal unlabored respirations, skin warm/dry/pink. 22:00 Reassessment: Patient appears in no apparent distress at this time. No changes from ll3 previously documented assessment. Patient and/or family updated on plan of care and expected duration. Pain level reassessed. Patient is alert, oriented x 3, equal unlabored respirations, skin warm/dry/pink. 23:07 Reassessment: Patient appears in no apparent distress at this time. No changes from ll3 previously documented assessment. Patient and/or family updated on plan of care and expected duration. Pain level reassessed. Patient is alert, oriented x 3, equal unlabored respirations, skin warm/dry/pink. Vital Signs: 15:09 BP 96 / 57; Pulse 65; Resp 18; Temp 97.7(O); Pulse Ox 94% ; Weight 81.65 kg; Height 4 vg1 ft. 11 in. (149.86 cm); Pain 5/10; 16:18 BP 106 / 63; Pulse 67; Resp 18; Pulse Ox 96% on R/A; ld1 18:01 BP 109 / 66; Pulse 66; Resp 18; Pulse Ox 99% on Nebulizer Mask; ld1 21:31 BP 145 / 67; Pulse 96; Resp 18; Pulse Ox 99% on R/A; ll3 23:00 BP 118 / 56; Pulse 91; Resp 18; Pulse Ox 97% on 2 lpm NC; ll3 15:09 Body Mass Index 36.36 (81.65 kg, 149.86 cm) vg1 ED Course: 12:53 Patient arrived in ED. luis 12:54 Fransisco Coronel MD is Attending Physician. luis 15:13 Triage completed. vg1 15:13 Arm band placed on. vg1 15:44 Patient placed in an exam room, on a stretcher. ll1 16:18 Patient has correct armband on for positive identification. Placed in gown. Bed in low ld1 position. Call light in reach. Side rails up X2. Pulse ox on. NIBP on. Door closed. Noise minimized. Warm blanket given. 16:18 No provider procedures requiring assistance completed. Maintain EMS IV. Dressing ld1 intact. Good blood return noted. Site clean \\T\\ dry. Gauge \\T\\ site: 20G RAC. 16:19 COVID-19/FLU A+B/RSV (Document "Date of Onset" if Symptomatic) Sent. ld1 17:44 COVID-19/FLU A+B/RSV (Document "Date of Onset" if Symptomatic) Sent. ld1 17:48 XRAY Chest (1 view) In Process Unspecified. EDMS 17:55 Caleb Holbrook MD is Hospitalizing Provider. [facility] 17:55 Inserted saline lock: 22 gauge in right hand, using aseptic technique. dh3 18:00 First set of blood cultures drawn by me. dh3 18:05 Second set of blood cultures drawn by me. dh3 18:18 Viji Perea, VALENTINE is Primary Nurse. ld1 23:59 Patient admitted, IV remains in place. No redness/swelling at site. ll3 Administered Medications: 18:19 Discontinued: NS 0.9% 1000 ml IV at 1 bolus Per protocol; 1000 mL bolus [facility] 16:18 Drug: NS 0.9% 1000 ml Route: IV; Rate: 1 bolus; Site: left antecubital; ld1 18:21 Follow up: IV Status: Order to discontinue infusion ld1 18:02 Drug: Rocephin (cefTRIAXone) 1 grams Route: IV; Rate: per protocol; Site: right ld1 antecubital; 18:02 Follow up: Response: No adverse reaction ld1 18:02 Drug: Zithromax (azithromycin) 500 mg Route: PO; ld1 18:02 Follow up: Response: No adverse reaction ld1 18:02 Drug: SOLU-Medrol (methylPrednisoLONE) 125 mg Route: IVP; Site: right antecubital; ld1 18:02 Follow up: Response: No adverse reaction ld1 18:02 Drug: Xopenex (levalbuterol) 1.25 mg Route: Inhalation; ld1 23:07 Follow up: Response: No adverse reaction ll3 18:02 Drug: AtroVENT (ipratropium) Aerosol 0.5 mg Route: Inhalation; ld1 23:07 Follow up: Response: No adverse reaction ll3 18:18 Drug: Pepcid (famotidine) 20 mg Route: IVP; Site: right antecubital; ld1 18:18 Follow up: Response: No adverse reaction ld1 18:22 Drug: Potassium Effervescent Tablet 50 mEq Route: PO; ld1 01 05:01 Follow up: Response: No adverse reaction ll3 06/20 21:19 Drug: Lasix (furosemide) 20 mg Route: IVP; Site: right hand; ll3 23:07 Follow up: Response: No adverse reaction ll3 Outcome: 17:59 Decision to Hospitalize by Provider. luis 23:59 Admitted to Med/surg accompanied by nurse, family with patient, via wheelchair, room ll3 408, with oxygen, with chart, Report called to VALENTINE Colin 23:59 Condition: stable 23:59 Instructed on the need for admit. 06/21 00:01 Patient left the ED. ll3 Signatures: Dispatcher [employer] EDMS Fransisco Coronel MD MD cha Herrera, Cassy 3 Gogo Mckinnon RN RN vg1 Cris Chisholm RN RN ll1 Viji Perea, VALENTINE RN ld1 Estefani Bryant RN RN ll3 Corrections: (The following items were deleted from the chart) 06/20 15:15 15:09 Chief complaint: Patient states: 'Im weak, dizzy, my legs give out on me, back vg1 hurts and belly hurts' since yesterday. Pt states fell yesterday and today. Denies hitting head or LOC. Pt came in by EMS and has a 20 g to Right AC and was given 1 L of NS. vg1 15:15 15:13 Allergies: No Known Allergies; vg1 vg1 22:54 17:00 Reassessment: Patient appears in no apparent distress at this time. No changes ll3 from previously documented assessment. Patient and/or family updated on plan of care and expected duration. Pain level reassessed. Patient is alert, oriented x 3, equal unlabored respirations, skin warm/dry/pink. ll3 22:54 18:00 Reassessment: Patient appears in no apparent distress at this time. No changes ll3 from previously documented assessment. Patient and/or family updated on plan of care and expected duration. Pain level reassessed. Patient is alert, oriented x 3, equal unlabored respirations, skin warm/dry/pink. ll3
--- NOTE | 2021-06-20 18:00 | EDPHYS ---
Physician Documentation [facility] Name: Denisha Thao Age: 65 yrs Sex: Female : 1955 Arrival Date: 06/20/2021 Time: 12:53 Bed 9 Private MD: ED Physician Fransisco Coronel HPI: 06/20 16:49 This 65 yrs old Female presents to ER via EMS with complaints of Flu Symptoms.luis 16:49 The patient has shortness of breath at rest, with light activity. Onset: The luis symptoms/episode began/occurred 3 day(s) ago. Duration: The symptoms are continuous, and are steadily getting worse. The patient's shortness of breath has no apparent modifying factors. The patient or guardian reports cough, flu symptoms. Modifying factors: The symptoms are alleviated by remaining still, the symptoms are aggravated by activity. Associated signs and symptoms: Pertinent positives: non-productive cough, dizziness. Severity of symptoms: At their worst the symptoms were moderate in the emergency department the symptoms are unchanged. Historical: - Allergies: 15:13 Iodine; vg1 - Home Meds: 15:13 Metformin Oral [Active]; vg1 - PMHx: 15:13 High Cholesterol; Hypertension; neuropathy; Pre Diabetic; vg1 - PSHx: 15:13 section; vg1 - Immunization history:: Client reports receiving the 2nd dose of the Covid vaccine. - Social history:: Smoking status: Patient denies any tobacco usage or history of. ROS: 16:50 Constitutional: Negative for fever, chills, and weight loss, Eyes: Negative for injury, luis pain, redness, and discharge, ENT: Negative for injury, pain, and discharge, Neck: Negative for injury, pain, and swelling, Cardiovascular: Negative for chest pain, palpitations, and edema, Abdomen/GI: Negative for abdominal pain, nausea, vomiting, diarrhea, and constipation, Back: Negative for injury and pain, : Negative for injury, bleeding, discharge, and swelling, MS/Extremity: Negative for injury and deformity, Skin: Negative for injury, rash, and discoloration, Neuro: Negative for headache, weakness, numbness, tingling, and seizure, Psych: Negative for depression, anxiety, suicide ideation, homicidal ideation, and hallucinations, Allergy/Immunology: Negative for hives, rash, and allergies, Endocrine: Negative for neck swelling, polydipsia, polyuria, polyphagia, and marked weight changes, Hematologic/Lymphatic: Negative for swollen nodes, abnormal bleeding, and unusual bruising. 16:50 Respiratory: Positive for cough, "sounds productive", dyspnea on exertion, shortness of breath, at rest. 16:50 MS/extremity: Negative for acute changes. Exam: 16:50 Constitutional: This is a well developed, well nourished patient who is awake, alert, luis and in no acute distress. Head/Face: Normocephalic, atraumatic. Eyes: Pupils equal round and reactive to light, extra-ocular motions intact. Lids and lashes normal. Conjunctiva and sclera are non-icteric and not injected. Cornea within normal limits. Periorbital areas with no swelling, redness, or edema. ENT: Nares patent. No nasal discharge, no septal abnormalities noted. Tympanic membranes are normal and external auditory canals are clear. Oropharynx with no redness, swelling, or masses, exudates, or evidence of obstruction, uvula midline. Mucous membranes moist. Neck: Trachea midline, no thyromegaly or masses palpated, and no cervical lymphadenopathy. Supple, full range of motion without nuchal rigidity, or vertebral point tenderness. No Meningismus. Chest/axilla: Normal chest wall appearance and motion. Nontender with no deformity. No lesions are appreciated. Cardiovascular: Regular rate and rhythm with a normal S1 and S2. No gallops, murmurs, or rubs. Normal PMI, no JVD. No pulse deficits. Abdomen/GI: Soft, non-tender, with normal bowel sounds. No distension or tympany. No guarding or rebound. No evidence of tenderness throughout. Back: No spinal tenderness. No costovertebral tenderness. Full range of motion. Female : Normal external genitalia. Skin: Warm, dry with normal turgor. Normal color with no rashes, no lesions, and no evidence of cellulitis. MS/ Extremity: Pulses equal, no cyanosis. Neurovascular intact. Full, normal range of motion. Neuro: Awake and alert, GCS 15, oriented to person, place, time, and situation. Cranial nerves II-XII grossly intact. Motor strength 5/5 in all extremities. Sensory grossly intact. Cerebellar exam normal. Normal gait. Psych: Awake, alert, with orientation to person, place and time. Behavior, mood, and affect are within normal limits. 16:50 ECG was reviewed by the Attending Physician. 16:50 Respiratory: mild respiratory distress is noted, Respirations: labored breathing, is not present, Breath sounds: bronchial sounds, that are moderate, are scattered, decreased breath sounds, that are mild, are scattered, rhonchi, that are moderate, are scattered, stridor, is not appreciated, + upper airway congestion. wheezing: expiratory is scattered. 16:50 Abdomen/GI: Inspection: distension, that is moderate, Bowel sounds: normal, Palpation: nontender, in all quadrants, Liver: no appreciated palpable abnormalities, Hernia: not appreciated. 18:13 Abdomen/GI: Rectal exam: is unremarkable, rectal tone normal, Stool: guaiac negative, luis hemorrhoid(s), are not appreciated, mass, is not appreciated, swelling, is not appreciated. Vital Signs: 15:09 BP 96 / 57; Pulse 65; Resp 18; Temp 97.7(O); Pulse Ox 94% ; Weight 81.65 kg; Height 4 vg1 ft. 11 in. (149.86 cm); Pain 5/10; 16:18 BP 106 / 63; Pulse 67; Resp 18; Pulse Ox 96% on R/A; ld1 18:01 BP 109 / 66; Pulse 66; Resp 18; Pulse Ox 99% on Nebulizer Mask; ld1 21:31 BP 145 / 67; Pulse 96; Resp 18; Pulse Ox 99% on R/A; ll3 23:00 BP 118 / 56; Pulse 91; Resp 18; Pulse Ox 97% on 2 lpm NC; ll3 15:09 Body Mass Index 36.36 (81.65 kg, 149.86 cm) vg1 MDM: 12:54 Patient medically screened. luis 16:53 Differential diagnosis: Anemia asthma, Bronchitis CHF exacerbation, bronchitis, flu, luis URI. Antibiotic administration: Rocephin and Zithromax given. The patient's Wells Deep Vein Thrombosis Score was calculated as follows: Total Score: 0-2 Pts- Low Risk. The patient's pulmonary embolism risk score was calculated as follows: Total Score: 0-2 points. This patient was found to be at low risk for a pulmonary embolism by using the Well's assessment criteria. Immunization status: Influenza vaccine: Data reviewed: vital signs, nurses notes, lab test result(s), EKG, radiologic studies, plain films. Data interpreted: compliance monitor: rate is 67 beats/min, rhythm is regular, Pulse oximetry: on room air is 96 %. Test interpretation: by ED physician or midlevel provider: ECG, plain radiologic studies. Counseling: I had a detailed discussion with the patient and/or guardian regarding: the historical points, exam findings, and any diagnostic results supporting the discharge/admit diagnosis, lab results, radiology results, the need for further work-up and treatment in the hospital. 06/20 15:47 Order name: Basic Metabolic Panel; Complete Time: 17:51 [facility] 06/20 15:47 Order name: CBC with Diff; Complete Time: 17:29 luis 06/20 15:47 Order name: LFT's; Complete Time: 17:51 [facility] 06/20 15:47 Order name: Magnesium; Complete Time: 17:51 [facility] 06/20 15:47 Order name: NT PRO-BNP; Complete Time: 17:51 [facility] 06/20 15:47 Order name: PT-INR; Complete Time: 17:29 luis 06/20 15:47 Order name: Troponin HS; Complete Time: 17:51 [facility] 06/20 15:47 Order name: XRAY Chest (1 view); Complete Time: 19:17 luis 06/20 15:47 Order name: Lactate; Complete Time: 17:29 luis 06/20 15:47 Order name: Procalcitonin; Complete Time: 17:43 [facility] 06/20 16:11 Order name: COVID-19/FLU A+B/RSV (Document "Date of Onset" if Symptomatic); Complete bd Time: 17:54 06/20 16:14 Order name: Urine Dipstick-Ancillary; Complete Time: 17:29 EDMS 06/20 17:32 Order name: Blood Culture Adult (2) luis 06/20 17:49 Order name: Occult Blood--Ancillary; Complete Time: 19:17 bd 06/20 15:47 Order name: EKG; Complete Time: 15:48 luis 06/20 15:47 Order name: Cardiac monitoring; Complete Time: 16:18 luis 06/20 15:47 Order name: EKG - Nurse/Tech; Complete Time: 16:18 luis 06/20 15:47 Order name: IV Saline Lock; Complete Time: 16:18 [facility] 06/20 15:47 Order name: Labs collected and sent; Complete Time: 16:18 luis 06/20 17:53 Order name: CT Chest Abdomen Pelvis W/O Contrast [facility] 06/20 19:13 Order name: CT; Complete Time: 19:17 EDMS 06/20 15:47 Order name: O2 Per Protocol; Complete Time: 16:18 luis 06/20 15:47 Order name: O2 Sat Monitoring; Complete Time: 16:18 luis 06/20 15:47 Order name: Urine Dipstick-Ancillary (obtain specimen); Complete Time: 16:18 luis EC:50 Rate is 68 beats/min. Rhythm is regular. QRS Burnett is Normal. NM interval is normal. QRS luis interval is normal. QT interval is prolonged at 462 msec. No Q waves. T waves are Normal. Clinical impression: NSR w/ Non-specific ST/T Changes and No evidence of ischemia. Interpreted by me. Reviewed by me. Administered Medications: 18:19 Discontinued: NS 0.9% 1000 ml IV at 1 bolus Per protocol; [address] [facility] 16:18 Drug: NS 0.9% 1000 ml Route: IV; Rate: 1 bolus; Site: left antecubital; ld1 18:21 Follow up: IV Status: Order to discontinue infusion ld1 18:02 Drug: Rocephin (cefTRIAXone) 1 grams Route: IV; Rate: per protocol; Site: right ld1 antecubital; 18:02 Follow up: Response: No adverse reaction ld1 18:02 Drug: Zithromax (azithromycin) 500 mg Route: PO; ld1 18:02 Follow up: Response: No adverse reaction ld1 18:02 Drug: SOLU-Medrol (methylPrednisoLONE) 125 mg Route: IVP; Site: right antecubital; ld1 18:02 Follow up: Response: No adverse reaction ld1 18:02 Drug: Xopenex (levalbuterol) 1.25 mg Route: Inhalation; ld1 23:07 Follow up: Response: No adverse reaction ll3 18:02 Drug: AtroVENT (ipratropium) Aerosol 0.5 mg Route: Inhalation; ld1 23:07 Follow up: Response: No adverse reaction ll3 18:18 Drug: Pepcid (famotidine) 20 mg Route: IVP; Site: right antecubital; ld1 18:18 Follow up: Response: No adverse reaction ld1 18:22 Drug: Potassium Effervescent Tablet 50 mEq Route: PO; ld1 06/21 05:01 Follow up: Response: No adverse reaction ll3 06/20 21:19 Drug: Lasix (furosemide) 20 mg Route: IVP; Site: right hand; ll3 23:07 Follow up: Response: No adverse reaction ll3 Disposition Summary: 06/20/21 17:59 Hospitalization Ordered Hospitalization Status: Inpatient Admission luis Provider: Caleb Holbrook cha Location: Telemetry/MedSur (Inpatient) luis Condition: Fair luis Problem: new luis Symptoms: have improved luis Bed/Room Type: Standard [facility] Room Assignment: [id number](06/20/21 23:05) mw Diagnosis - Fever, unspecified luis - Cough luis - Anemia, unspecified luis - Hypokalemia luis - Coronavirus infection, unspecified luis - UTI/ Urinary tract infection, site not specified luis - Cardiomegaly luis - Unspecified combined systolic (congestive) and diastolic (congestive) heart failure luis Forms: - Medication Reconciliation Form luis - SBAR form luis Signatures: Dispatcher [employer] EDMS Nicole Savage RN RN mw Anderson, Corey, MD MD cha Garcia, Victoria, RN RN vg1 Viji Perea RN RN [email or web address] Estefani Bryant RN RN ll3 Corrections: (The following items were deleted from the chart) 15:15 15:13 Allergies: No Known Allergies; vg1 vg1 23:05 17:59 luis mw
[2021-06-20] MEDS ORDERED: FAMOTIDINE 20 MG/2 ML VIAL IV ONE (18:15)
--- NOTE | 2021-06-20 18:21 | RAD REPORT ---
EXAM DESCRIPTION: RAD - Chest Single View - 06/20/2021 5:47 pm CLINICAL HISTORY: COUGH COMPARISON: March 2008 TECHNIQUE: AP portable chest image was obtained 06/20/2021 5:47 pm . FINDINGS: Lung volumes are low and patient has fibrosis is a baseline. Interstitial opacification is seen throughout the lung arguelles believed to be edema or infiltrate superimposed on fibrosis. Mild ca rdiomegaly is present. Mild vascular engorgement is seen. All chest findings are accentuated by the l ow lung volumes. No peripheral mass or consolidation. No measurable pleural effusion and no pneumotho rax. No acute bony abnormality seen. No acute aortic findings suspected. IMPRESSION: Interstitial edema or infiltrate superimposed on fibrosis. Mild cardiomegaly. Mild failure or volume overload is certainly possible.
--- NOTE | 2021-06-20 19:10 | RAD REPORT ---
EXAM DESCRIPTION: CT - Chest Abd Pelvis Wo Con - 06/20/2021 6:26 pm CLINICAL HISTORY: COUGH COMPARISON: Chest For Pe Angio dated 03/17/2018; Chest Single View dated 06/20/2021 TECHNIQUE: Axial 5 millimeter thick images of the chest, abdomen and pelvis were obtained without IV contrast. Oral contrast was administered. All CT scans are performed using dose optimization technique as appropriate and may include automated exposure control or mA/KV adjustment according to patient size. FINDINGS: The lungs are clear of mass and infiltrate. Scattered scarring and atelectasis changes are present. No pneumothorax or pleural effusion. No chest wall mass or abnormal axillary lymphadenopat hy seen. Mediastinal and hilar regions show no mass or lymphadenopathy. No significant cardiac find ing. Liver shows diffuse fatty infiltration pattern with minimal sparing near the gallbladder fossa. No fo rufino liver finding. Spleen and pancreas show no suspicious findings. Gallbladder and biliary tree are normal. Gallstones can be occult on CT imaging. Mild right-sided hydronephrosis is present to the mid ureter level. Right kidney appears edematous re lative the left and there is congestion or edema in the perinephric fat. No obstructing or nonobstruc ting calculi seen. Distal ureter is not dilated. No adrenal abnormalities. No urinary bladder abnorm alities. No dilated bowel loops or focal ball bowel wall thickening. Moderate stool volume seen in the right-s vilma colon. No appendicitis. No free air, free fluid or pneumatosis. No hernia, mass or bulky lymphade nopathy. There is a minimal amount of stranding in the retroperitoneum the right-side near where the right ureter traverses. No significant bone or vascular finding. Prominent vascular calcifications are present. Bony degenera tive changes are present. No acute bone finding identifiable. IMPRESSION: Patient has mild right-sided hydronephrosis and hydroureter to the mid ureter level with the right kidney congested and edematous in appearance. No obstructing or nonobstructing calculi on the right. Pyelonephritis of the right kidney is certainl y possible and could explain the mild right-sided ureteral dilatation. Blood or inflammatory debris w ithin the ureter can cause obstruction. Retroperitoneal stranding is minimal but is present where the midtransverse ureter traverses. The pos sibility of minimal or early retroperitoneal fibrosis should be a consideration if no other etiology can't be determined. No acute CT chest finding.
--- NOTE | 2021-06-20 20:58 | P.HP ---
Certification for Inpatient Patient will require the following post-hospital care: None Practitioner: I am a practitioner with admitting privileges, knowledge of patient current condition, hospital course, and medical plan of care. Services: Services provided to patient in accordance with Admission requirements found in Title 42 Section 412.3 of the Code of Federal Regulations Patient History Date of Service: 06/20/21 Reason for admission: WEAKNESS, FALLS, FEVER History of Present Illness: PIERCE HAD COVID DURING KATIE TIME, RECOVERED WELL AND GOT WORSE LATELY WITH FEVER AND FALLS. I ASKED HER TO COME TO ER TO EVALUATE FOR FEVER AND RULE OUT DEHYDRATION INDUCED FALLS. AFTER TALKING TO DR. GREWAL WE ORDERED CT SCAN OF CHEST AND ABDOMEN LAB AND EXAMINATION DID NOT REVEAL ANY ETIOLOGY FOR FEVER. SHE ON CT SEEMS TO HAVE R SIDE PYELONEPHRITIS. HER BP DROPPED TO 90 [address]STOLIC ON STANDING [address] GREWAL. Allergies No Known Allergies Allergy (Verified 03/16/18 16:33) Home medications list reviewed: Yes Home Medications: Aspirin [Aspir-Low] 162 mg PO DAILY 03/16/18 Atorvastatin Calcium [Lipitor] 40 mg PO DAILY 03/16/18 Cyclobenzaprine [Flexeril*] 10 mg PO TID PRN 03/16/18 Duloxetine HCl 60 mg PO DAILY 03/16/18 Gabapentin 300 mg PO TID 03/16/18 Loratadine 10 mg PO DAILY 03/16/18 Losartan/Hydrochlorothiazide [Losartan-Hctz 100-12.5 mg Tab] 1 each PO DAILY 03/16/18 Magnesium Oxide [Magnesium] 500 mg PO BEDTIME 03/16/18 Metformin HCl 500 mg PO BID 03/16/18 Multivitamin [Daily Multivitamin] 1 tab PO DAILY 03/16/18 Oxybutynin Chloride 5 mg PO BID 03/16/18 bisoproloL fumarate [Zebeta*] 5 mg PO DAILY 03/16/18 levoFLOXacin [Levaquin*] 750 mg PO DAILY #12 tab 03/18/18 - Past Medical/Surgical History Diabetic: No -: Hypertension -: Hyperlipidemia -: Neuropathy -: 3x c sections -: hysterectomy - Family History Mother -: Diabetes, Cancer Notes: colon cancer, lung cancer sisters -: Diabetes - Social History Alcohol use: No CD- Drugs: No Caffeine use: Yes Review of Systems 10-point ROS is otherwise unremarkable General: Weakness, Malaise Physical Examination - Physical Exam General: Oriented x3, Mild distress, Obese HEENT: Atraumatic, PERRLA, Mucous membr. moist/pink, EOMI, Sclerae nonicteric Neck: Supple, 2+ carotid pulse no bruit, No LAD, Without JVD or thyroid abnormality Respiratory: Clear to auscultation bilaterally, Normal air movement Cardiovascular: Regular rate/rhythm, Normal S1 S2 Gastrointestinal: Normal bowel sounds, No tenderness Musculoskeletal: No tenderness Integumentary: No rashes Neurological: Normal gait, Normal speech, Normal strength at 5/5 x4 extr, Normal tone, Normal affect Lymphatics: No axilla or inguinal lymphadenopathy - Studies Laboratory Data (last 24 hrs) 06/20/21 16:05: PT 13.5 H, INR 1.17 06/20/21 16:05: WBC 8.70, Hgb 9.6 L, Hct 31.0 L, Plt Count 248 06/20/21 16:05: Sodium 133 L, Potassium 3.0 L, BUN 20 H, Creatinine 1.11, Glucose 133 H, Magnesium 2.6 H, Total Bilirubin 0.7, AST 18, ALT 32, Alkaline Phosphatase 101 Microbiology Data (last 24 hrs): 06/20/21 17:49 Stool Occult Blood - Final Assessment and Plan - Problems (Diagnosis) (1) Pyelonephritis Current Visit: Yes Status: Acute Plan: IV ROCEPHIN SHOULD HELP. CULTURE PENDING. (2) Orthostatic hypotension Current Visit: Yes Status: Acute Plan: FROM FEVER AND DEHYDRATION IV HALF NS WILL TAKE CARE OF THIS. (3) Diabetes Onset Date: 03/18/18 Current Visit: No Status: Chronic Plan: DIET IS POOR. I AM DOING A1C ON OP BASIS. Qualifiers: Diabetes mellitus type: type 2 Diabetes mellitus custodial insulin use: without custodial use Diabetes mellitus complication status: with circulatory complication (4) COVID Current Visit: Yes Status: Acute Plan: RECENT HISTORY PCR STILL POS NO SYMPTOMS FROM IT. - Advance Directives Does patient have a Living Will: No Does patient have a Durable POA for Healthcare: No
[2021-06-20] MEDS ORDERED: FUROSEMIDE 20 MG/ 2ML VIAL ONE (21:13)
[2021-06-20] MEDS ORDERED: NA CHLORIDE 0.9% 1,000 ML IV SCH (22:57)
[2021-06-20] MEDS: CEFTRIAXONE 1,000 MG in NA CHLORIDE 0.9% 50 ML IVPB SCH (22:57)
[2021-06-20] MEDS ORDERED: IPRATROPIUM BROM 0.5MG/2.5ML NEB PRN (22:57)
[2021-06-20] MEDS: FAMOTIDINE 20 MG/2 ML VIAL IV SCH (22:57)
[2021-06-20] MEDS: POTASSIUM 25 MEQ EFFERV TAB PO SCH (22:57)
[2021-06-20] MEDS ORDERED: ONDANSETRON 4 MG/2 ML VIAL IV PRN (22:57)
[2021-06-20] MEDS ORDERED: ALBUTEROL 2.5 MG/3 ML NEB SOL NEB PRN (22:57)
[2021-06-21] MEDS: METHYLPREDNISOLONE 40 MG INJ IV SCH ×2 (00:38→06:00)
[2021-06-21 03:46] LABS: Absolute Lymphocytes (CBC) 0.7 K/uL (0.7-4.9); Hematocrit 26.8 % (36.0-45.0); Lymphocytes % 9.9 % (15.3-44.8); MPV 7.4 fL (7.6-11.3); RBC Red Blood Cell Count 3.63 M/uL (3.86-4.86)
[2021-06-21 04:12] LABS: Potassium 3.8 mmol/L (3.5-5.1)
[2021-06-21] MEDS: NA CHLORIDE 0.9% 1,000 ML IV SCH ×2 (06:56→08:10)
[2021-06-21 07:55] VITALS: BMI 32.4
[2021-06-21] MEDS: FAMOTIDINE 20 MG/2 ML VIAL IV SCH ×2 (08:11→20:57)
[2021-06-21] MEDS: POTASSIUM 25 MEQ EFFERV TAB PO SCH ×2 (08:12→21:17)
[2021-06-21] MEDS: AZITHROMYCIN IV 250 MG in NA CHLORIDE 0.9% 250 ML IVPB SCH ×2 (08:12→09:12)
[2021-06-21] MEDS: CEFTRIAXONE 1,000 MG in NA CHLORIDE 0.9% 50 ML IVPB SCH ×2 (08:12→20:57)
[2021-06-21] MEDS ORDERED: FUROSEMIDE 20 MG/ 2ML VIAL IV SCH (09:00)
[2021-06-21] MEDS ORDERED: CYCLOBENZAPRINE 10 MG TAB PO PRN (12:39)
[2021-06-21] MEDS: GABAPENTIN 300 MG CAP PO SCH ×2 (13:21→20:57)
[2021-06-21] MEDS: ACETAMINOPHEN 325 MG TABLET PO PRN (13:25)
[2021-06-21] MEDS: METFORMIN HCL 500 MG TAB PO SCH (16:16)
[2021-06-21] MEDS: ENOXAPARIN 100 MG/ML SYR SQ SCH (16:16)
[2021-06-21] MEDS ORDERED: ATORVASTATIN 40 MG TAB PO SCH (21:00)
--- NOTE | 2021-06-21 21:33 | P.PN ---
Subjective Date of Service: 06/21/21 Chief Complaint: WEAKNESS, FALLS, FEVER Subjective: Ambulating, Improving SHE FELL A FEW TIMES AT HOME. HERE I ASKED HER TO WALK AND SHE IS ABLE TO WALK WITHOUT FALLING. I ADDED D DIMER SHE HAD EARLY HYPOXIA. D DIMER IS MORE THAN 1000. SHE WILL GET VQ SCAN AND VENOUS DOPPLER OF LEGS. SHE HAS HIGH RISK OF PE. Physical Examination - Vital Signs Temperature: 98.0 F Blood Pressure: 128/70 Pulse: 76 Respirations: 18 Pulse Ox (%): 94 - Physical Exam General: Alert, In no apparent distress HEENT: Atraumatic, PERRLA, EOMI Neck: Supple, JVD not distended Respiratory: Clear to auscultation bilaterally, Normal air movement Cardiovascular: Regular rate/rhythm, Normal S1 S2 Gastrointestinal: Normal bowel sounds, No tenderness Musculoskeletal: No tenderness Integumentary: No rashes Neurological: Normal speech, Normal tone, Normal affect Lymphatics: No axilla or inguinal lymphadenopathy - Studies Microbiology Data (last 24 hrs): 06/20/21 17:49 Stool Occult Blood - Final Medications List Reviewed: Yes Assessment And Plan - Current Problems (Diagnosis) (1) Pyelonephritis Current Visit: Yes Status: Acute Plan: IV ROCEPHIN SHOULD HELP. CULTURE PENDING. (2) Orthostatic hypotension Current Visit: Yes Status: Acute Plan: FROM FEVER AND DEHYDRATION IV HALF NS WILL TAKE CARE OF THIS. (3) Diabetes Onset Date: 03/18/18 Current Visit: No Status: Chronic Plan: DIET IS POOR. I AM DOING A1C ON OP BASIS. Qualifiers: Diabetes mellitus type: type 2 Diabetes mellitus halfway insulin use: without buttermilk drier operator use Diabetes mellitus complication status: with circulatory complication (4) COVID Current Visit: Yes Status: Acute Plan: RECENT HISTORY PCR STILL POS NO SYMPTOMS FROM IT. (5) Hypoxia Current Visit: Yes Status: Acute Plan: THIS CAN BE FROM COVID. IT CAN BE FROM PE CHECK VQ SHE CAN'T DO IV CONTRAST FOR CT.
[2021-06-22] MEDS: ACETAMINOPHEN 325 MG TABLET PO PRN (03:32)
[2021-06-22] MEDS: NA CHLORIDE 0.9% 1,000 ML IV SCH (05:58)
--- NOTE | 2021-06-22 07:29 | EKG ---
Test Date: 2021-06-20 Test Time: 16:05:38 Shift Leader: LINDA MEASUREMENT RESULTS: Intervals: Rate: 68 MA: 148 QRSD: 96 QT: 462 QTc: 491 Prospect: P: 58 MA: 148 QRS: 23 T: 56 INTERPRETIVE STATEMENTS: Normal sinus rhythm Nonspecific ST and T wave abnormality Prolonged QT Abnormal ECG Compared to ECG 03/16/2018 13:14:57 Prolonged QT interval now present Sinus tachycardia no longer present ST (T wave) deviation still present Electronically Signed On 06-22-21 07:26:21 POT PULLER by Félix Reaves
[2021-06-22 07:51] LABS: Absolute Lymphocytes (CBC) 2.1 K/uL (0.7-4.9); Hematocrit 27.6 % (36.0-45.0); Lymphocytes % 22.6 % (15.3-44.8); MPV 7.4 fL (7.6-11.3); RBC Red Blood Cell Count 3.75 M/uL (3.86-4.86)
[2021-06-22] MEDS: POTASSIUM 25 MEQ EFFERV TAB PO SCH (07:51)
[2021-06-22] MEDS: GABAPENTIN 300 MG CAP PO SCH ×2 (07:51→14:52)
[2021-06-22] MEDS: FAMOTIDINE 20 MG/2 ML VIAL IV SCH (07:52)
[2021-06-22] MEDS: METFORMIN HCL 500 MG TAB PO SCH (07:52)
[2021-06-22] MEDS: ENOXAPARIN 100 MG/ML SYR SQ SCH (07:52)
[2021-06-22] MEDS: CEFTRIAXONE 1,000 MG in NA CHLORIDE 0.9% 50 ML IVPB SCH (07:53)
[2021-06-22 08:02] LABS: BUN Blood Urea Nitrogen 16 mg/dL (7-18); Bicarbonate 25 mmol/L (21-32); Glucose Level 146 mg/dL (74-106); Potassium 3.7 mmol/L (3.5-5.1); Sodium Level 139 mmol/L (136-145)
[2021-06-22 08:26] VITALS: O2SAT 93
--- NOTE | 2021-06-22 08:34 | ECHO ---
HEIGHT: 4 ft 11 in WEIGHT: 189 lb 0 oz DATE OF STUDY: 06/21/[address]: Fransisco Coronel MD 2-DIMENSIONAL: YES M.MODE: YES DOPPLER: YES COLOR FLOW: YES TDS: NO PORTABLE: NO DEFINITY: NO BUBBLE STUDY: NO DIAGNOSIS: SHORTNESS OF BREATH CARDIAC HISTORY: CATHERIZATION: NO SURGERY: NO PROSTHETIC VALVE: NO PACEMAKER: NO MEASUREMENTS (cm) DIASTOLIC (NORMALS) SYSTOLIC (NORMALS) IVSd 1.2 (0.6-1.2) LA Diam 2.6 (1.9-4.0) LVEF 66% LVIDd 4.8 (3.5-5.7) LVIDs 3.0 (2.0-3.5) %FS 37% LVPWd 1.2 (0.6-1.2) Ao Diam 2.2 (2.0-3.7) 2 DIMENSIONAL ASSESSMENT: RIGHT ATRIUM: NORMAL LEFT ATRIUM: NORMAL RIGHT VENTRICLE: NORMAL LEFT VENTRICLE: NORMAL TRICUSPID VALVE: NORMAL MITRAL VALVE: NORMAL PULMONIC VALVE: NORMAL AORTIC VALVE: NORMAL PERICARDIAL EFFUSION: NONE AORTIC ROOT: NORMAL LEFT VENTRICULAR WALL MOTION: NORMAL. DOPPLER/COLOR FLOW: NORMAL. COMMENTS: NORMAL 2D ECHO WITH DOPPLER. NO WALL MOTION ABNORMALITY. NO EFFUSION. TECHNOLOGIST: BALWINDER GIFFORD
[2021-06-22] MEDS: AZITHROMYCIN IV 250 MG in NA CHLORIDE 0.9% 250 ML IVPB SCH (08:57)
[2021-06-22] MEDS ORDERED: BISOPROLOL 5 MG TABLET PO SCH (09:00)
[2021-06-22] MEDS ORDERED: LORATADINE 10 MG TAB PO SCH (09:00)
[2021-06-22] MEDS ORDERED: TRAMADOL HCL 50 MG TAB PO PRN (10:22)
--- NOTE | 2021-06-22 10:43 | RAD REPORT ---
EXAM DESCRIPTION: RAD - Chest Single View - 06/22/2021 10:14 am CLINICAL HISTORY: LUNG PERF COMPARISON: Chest Single View dated 06/20/2021; Chest Pa And Lat (2 Views) dated 03/16/2018; CHEST PA AND LAT 2 VIEW dated 09/19/2011; CHEST PA AND LAT 2 VIEW dated 12/12/2007 FINDINGS: Lines: None. Lungs: No evidence of edema or pneumonia. Pleural: No significant pleural effusions or pneumothorax. Cardiac: The heart size is within normal limits. Bones: No acute fractures. Other: IMPRESSION: No acute cardiopulmonary disease. Improved aeration lungs compared with 06/20/2021. This presumably represents resolved edema.
[2021-06-22 12:24] VITALS: BP 116/70; TEMP 98.7
--- NOTE | 2021-06-22 13:44 | RAD REPORT ---
EXAM DESCRIPTION: US - Extrem Venous W Compress Maikol - 06/22/2021 1:37 pm CLINICAL HISTORY: rule out dvt Bilateral leg edema and swelling. COMPARISON: Extremity Venous Uni Ltd dated 12/07/2015 TECHNIQUE: Real-time sonographic interrogation of the left and right lower extremity deep venous sys tems was performed. FINDINGS: Normal compressibility, flow augmentation, phasic flow and spontaneous flow is identified in both the left and right lower extremity deep venous systems. IMPRESSION: No sonographic evidence of left or right lower extremity deep venous thrombosis.
--- NOTE | 2021-06-22 16:00 | RAD REPORT ---
EXAM DESCRIPTION: NM - NM LUNG PERFUSION - 06/22/2021 9:59 am CLINICAL HISTORY: Elevated D-Dimer COMPARISON: Extrem Venous W Compress Maikol dated 06/22/2021; Chest Single View dated 06/22/2021 FINDINGS: Perfusion only was performed due to COVID-19 positive status. 7.3 millicuries technetium M AA was administered. Perfusion is slightly heterogenous but otherwise within normal limits. IMPRESSION: Low probability of pulmonary embolism based on perfusion only exam.
--- NOTE | 2021-06-22 17:27 | P.DS ---
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 I ASKED HER TO COME TO ER TO EVALUATE FOR FEVER AND RULE OUT DEHYDRATION INDUCED FALLS. AFTER TALKING TO DR. GREWAL WE ORDERED CT SCAN OF CHEST AND ABDOMEN LAB AND EXAMINATION DID NOT REVEAL ANY ETIOLOGY FOR FEVER. SHE ON CT SEEMS TO HAVE R SIDE PYELONEPHRITIS. HER BP DROPPED TO 90 SYSTOLIC ON STANDING [address] GREWAL. Hospital Course: LILIANE COMES IN TWO WEEKS AFTER COVID WITH RECURRENCE OF FEVER, WEAKNESS AND FALLS. SHE HAS PYELONEPHRITIS. SHE IMPROVED WITH IV ABX AND HYDRATION. SHE DOES NOT HAVE BACTERIAL PNEUMONIA. SHE HAD MILD HYPOXIA FROM COVID AND PERFUSION SCAN IS NORMAL AND SO IS VENOUS DOPPLER. SHE IS STABLE FOR HOME. Vital Signs/Physical Exam: Temp Pulse Resp BP Pulse Ox 98.7 F 85 18 116/70 94 06/22/21 12:00 06/22/21 12:00 06/22/21 12:00 06/22/21 12:00 06/22/21 12:00 Laboratory Data at Discharge: WBC 9.20 K/uL (4.3-10.9) D 06/22/21 07:30 Hgb 8.9 g/dL (12.0-15.0) L 06/22/21 07:30 Hct 27.6 % (36.0-45.0) L 06/22/21 07:30 Plt Count 283 K/uL (152-406) D 06/22/21 07:30 PT 13.5 SECONDS (9.5-12.5) H 06/20/21 16:05 INR 1.17 06/20/21 16:05 Sodium 139 mmol/L (136-145) 06/22/21 07:30 Potassium 3.7 mmol/L (3.5-5.1) 06/22/21 07:30 BUN 16 mg/dL (7-18) 06/22/21 07:30 Creatinine 0.56 mg/dL (0.55-1.3) 06/22/21 07:30 Glucose 146 mg/dL (74-106) H 06/22/21 07:30 Magnesium 2.6 mg/dL (1.8-2.4) H 06/20/21 16:05 Total Bilirubin 0.7 mg/dL (0.2-1.0) 06/20/21 16:05 AST 18 U/L (15-37) 06/20/21 16:05 ALT 32 U/L (12-78) 06/20/21 16:05 Alkaline Phosphatase 101 U/L (45-117) 06/20/21 16:05 Home Medications: Atorvastatin Calcium [Lipitor] 40 mg PO DAILY 03/16/18 Cyclobenzaprine [Flexeril*] 10 mg PO TID PRN 03/16/18 Gabapentin 300 mg PO TID 03/16/18 Loratadine 10 mg PO DAILY 03/16/18 Metformin HCl 500 mg PO BID 03/16/18 bisoproloL fumarate [Zebeta*] 10 mg PO DAILY 03/16/18 Cefuroxime [Ceftin] 250 mg PO BID #28 tab 06/21/21 New Medications: Cefuroxime [Ceftin] 250 mg PO BID #28 tab Followup: NONE,NONE [Primary Care Provider] - 1-2 Weeks (Call to schedule appointment)
== END 2021-06-22 17:00 | disposition home or self-care (01) | DRG 689 ==
LOC: ER 12:50 → ERHOLD 18:06 → 4TH 23:33
PROVIDERS: ADMIT Internal Medicine; ATTEND Internal Medicine
DX: N10 Acute pyelonephritis (principal); U07.1 COVID-19; N12 Tubulo-interstitial nephritis, not specified as acute or chronic; I10 Essential (primary) hypertension; D64.9 Anemia, unspecified; E11.59 Type 2 diabetes mellitus with other circulatory complications; E78.5 Hyperlipidemia, unspecified; I95.1 Orthostatic hypotension; E86.0 Dehydration; E87.6 Hypokalemia; I51.7 Cardiomegaly; R09.02 Hypoxemia; Z79.84 Long term (current) use of oral hypoglycemic drugs; Z91.048 Other nonmedicinal substance allergy status; Z79.82 Long term (current) use of aspirin; Z79.899 Other long term (current) drug therapy; Z90.710 Acquired absence of both cervix and uterus
CPT/HCPCS: 0241U; 36415; 71045; 71250; 74176; 78580; 80048; 80076; 81003; 82272; 83605; 83735; 83880; 84145; 84484; 85025; 85379; 85610; 87040; 87086; 87088; 93005; 93306; 93970; 94760; 99285; A9540; J0456; J1650; J1940; J2920; J2930; J7030; J7050